=== PATIENT | female | born 1955 | race Caucasian/White ===

== ENCOUNTER 2024-11-29 14:54 | Outpatient (REF) | payer MEDICARE, OTHER, SELFPAY ==
[2024-11-29 15:13] LABS: MANUAL DIFF FLAG NO
[2024-11-29 15:25] LABS: Basophils Percent Auto 0.4 % (0-2); Eosinophils Absolute Auto 0.1 X10*3/uL (0.0-0.4); Hematocrit 35.7 % (37.0-47.0); Hemoglobin 12.4 g/dl (12.0-16.0); Imm Gran Abs Auto 0.02 X10*3/uL (0.00-0.03); Imm Gran Pct Auto 0.3 % (0.0-0.4); Lymphocytes Absolute Auto 1.4 X10*3/uL (1.2-4.9); Mean Corpuscular HGB Conc 34.7 g/dl (31.0-35.0); Mean Corpuscular Hemoglobin 31.7 pg (27.0-33.0); Mean Corpuscular Volume 91.3 fL (80.0-98.0); Mean Platelet Volume 9.8 fL (9.4-12.3); Monocytes Absolute Auto 0.3 X10*3/uL (0.1-1.2); Monocytes Percent Auto 4.8 % (2-11); Neutrophils Absolute Auto 4.9 x10*3/uL (2.0-8.3); Neutrophils Percent Auto 72.5 % (45-73); Platelet Count 235 X10*3/uL (160-400); Red Blood Count 3.91 X10*6/uL (4.20-5.50); White Blood Count 6.7 X10*3/uL (4.8-10.8)
[2024-11-29 15:54] LABS: Alanine Aminotransferase 303 U/L (0-31); Albumin Level 4.1 g/dL (3.5-5.0); Anion Gap 13 (12-20); Aspartate Amino Transferase 145 U/L (5-31); Bilirubin Total 0.5 mg/dL (0.0-1.0); Blood Urea Nitrogen 14 mg/dL (9-16); C Reactive Protein 9.57 mg/dL (< or = 0.50); Calcium 9.2 mg/dL (8.4-10.2); Carbon Dioxide 28 mmol/L (22-29); Chloride 103 mmol/L (96-108); Estimated Glomerular Filt Rate > 60; Glucose Random 109 mg/dL (60-115); Sodium 141 mmol/L (135-145); Total Protein 6.5 g/dL (6.5-8.0)
[2024-11-29 16:15] LABS: Alkaline Phosphatase 204 U/L (39-117); Ferritin 1538 ng/mL (10-250); Free T4 (Free Thyroxine) 1.24 ng/dL (0.71-1.85)
[2024-11-29 16:25] LABS: Erythrocyte Sedimentation Rate 46 MM/HR (0-20)
== END 2024-11-29 14:55 | disposition home or self-care (01) ==
LOC: HO.LAB 14:54
PROVIDERS: PCP Family Medicine; Visit Provider Family Medicine
DX: R50.9 Fever, unspecified (principal)
CPT/HCPCS: 36415; 80053; 82728; 84439; 85025; 85652; 86140

== ENCOUNTER 2024-12-10 14:26 | Outpatient (REF) | payer OTHER, MEDICARE, SELFPAY ==
[2024-12-10 14:40] LABS: MANUAL DIFF FLAG NO
[2024-12-10 15:20] LABS: Basophils Absolute Auto 0.1 X10*3/uL (0.0-0.2); Basophils Percent Auto 0.8 % (0-2); Eosinophils Absolute Auto 0.1 X10*3/uL (0.0-0.4); Eosinophils Percent Auto 1.8 % (0-4); Hematocrit 37.9 % (37.0-47.0); Hemoglobin 12.7 g/dl (12.0-16.0); Imm Gran Abs Auto 0.02 X10*3/uL (0.00-0.03); Imm Gran Pct Auto 0.3 % (0.0-0.4); Lymphocytes Absolute Auto 2.8 X10*3/uL (1.2-4.9); Lymphocytes Percent Auto 39.2 % (20-40); Mean Corpuscular HGB Conc 33.5 g/dl (31.0-35.0); Mean Corpuscular Hemoglobin 31.4 pg (27.0-33.0); Mean Corpuscular Volume 93.8 fL (80.0-98.0); Mean Platelet Volume 9.2 fL (9.4-12.3); Monocytes Absolute Auto 0.5 X10*3/uL (0.1-1.2); Monocytes Percent Auto 6.5 % (2-11); Neutrophils Absolute Auto 3.7 x10*3/uL (2.0-8.3); Neutrophils Percent Auto 51.4 % (45-73); Platelet Count 465 X10*3/uL (160-400); Red Blood Count 4.04 X10*6/uL (4.20-5.50); Red Cell Distribution Width 13.7 % (11.0-16.0); White Blood Count 7.2 X10*3/uL (4.8-10.8)
[2024-12-10 15:48] LABS: Alanine Aminotransferase 28 U/L (0-31); Albumin Level 4.2 g/dL (3.5-5.0); Alkaline Phosphatase 125 U/L (39-117); Anion Gap 12 (12-20); Aspartate Amino Transferase 17 U/L (5-31); Bilirubin Direct 0.1 mg/dL (0.0-0.5); Bilirubin Total 0.5 mg/dL (0.0-1.0); C Reactive Protein 0.13 mg/dL (< or = 0.50); Carbon Dioxide 27 mmol/L (22-29); Chloride 107 mmol/L (96-108); Potassium 3.8 mmol/L (3.3-5.1); Sodium 142 mmol/L (135-145); Total Protein 6.6 g/dL (6.5-8.0)
[2024-12-10 16:05] LABS: Erythrocyte Sedimentation Rate 23 MM/HR (0-20)
[2024-12-11 08:20] LABS: HBS Num1 50.89 mIU/mL (0-7.99); HBsAGNum1 0.29 S/CO (0.00-0.99); Hepatitis B Surface Antigen Negative (Negative); ~HepC Num1 0.14 S/CO (0.00-0.79); ~Hepatitis B Surface Antibody REACTIVE (Nonreactive); ~Hepatitis C Antibody Nonreactive (Nonreactive)
== END 2024-12-10 14:27 | disposition home or self-care (01) ==
LOC: HO.LAB 14:26
PROVIDERS: Visit Provider Family Medicine
DX: K75.9 Inflammatory liver disease, unspecified (principal); R53.81 Other malaise; R53.83 Other fatigue; E56.1 Deficiency of vitamin K
CPT/HCPCS: 36415; 80051; 80076; 85025; 85652; 86140; 86706; 86803; 87340

== ENCOUNTER 2025-02-18 13:31 | Outpatient (AMB) | payer OTHER, MEDICARE, SELFPAY ==
--- NOTE | 2025-02-18 13:39 | MHC.PC.OV ---
Vital Signs 02/18/25 13:46 Height 5 ft Weight 61.235 kg BMI 26.4 BP 122/72 Respiration 16 Pulse 81 Pulse Source Pulse Oximeter Temp 98.4 F Temp Source Temporal Artery Scan Pulse Oximetry (%) 99 Oxygen Delivery Method Room Air Intake Visit Reasons: 2 MO F/UP - [employer] - [employer]raining Instructor Required: No Accompanied by: Self / Same As Patient Allergies doxycycline Allergy (Mild, Verified 02/18/25 13:41) Hives prenisone Adverse Reaction (Mild, Uncoded 02/18/25 13:41) Anxiety Tobacco use date assessed: 02/18/25 Fall risk assessment: 2 + Falls in past year Last assessed Fall Risk: 02/18/25 Dental Screening Dental Screen Date: 02/18/25 Did you have a dental visit in the last 12 months?: Yes Did you have a dental problem in the last 6 months where you did not have access to dental care?: No Was dental information given to patient?: No HPI HPI Comments History of Present Illness Details 69-year-old female with history of orthostatic hypotension, early onset cerebellar ataxia, history of TBI, asthma, venous insufficiency presents to the office today for management of chronic condition that will establish care. Asthma-reports is exercise-induced. Albuterol as needed with good effect Personal history of TBI-overall highly functioning though does occasionally require the assistance of her for recalling events history Concerns: Lyme disease- unclear when she was actually bitten, but officially diagnosed November 26 at [facility]. Took amoxicillin. Reports history of allergy to doxycycline with a rash, however does not seem consistent with urticaria. Possibly related to sun exposure as side effect of doxycycline. Sx initially fatigue which was the most pronounced and remains so. No arthralgias or myalgias. No neuro deficits. H she is very bothered by the fatigue as she was typically very active prior to this. Now feels exhausted with little energy. Reports she does sleep well, sometimes wakes earlier than she would like however. No depression Skin lesions on belt line abd. No relief with hydrocortisone but some relief with triamcinolone ROS: General: No fevers, malaise, unintentional weight loss. See HPI HEENT: No blurred vision, diplopia. No sore throat, nasal congestion, rhinorrhea, sinus pain, ear pain Cardiovascular: No chest pain, palpitations, or leg edema Respiratory: No shortness of breath, wheezing, cough GI: No abdominal pain, nausea, vomiting, diarrhea, constipation, melena, hematochezia : No dysuria, hematuria, increased urinary frequency, decreased urinary output MSK: No myalgia, back pain Neuro: No headaches, weakness, paresthesias Skin: No rashes or lesions. See HPI EXAM: Constitutional - Awake and Alert, No apparent distress Eyes - PERRL Cardiovascular - S1S2, RRR, No edema Respiratory - Normal lung expansion, Normal respiratory effort, No respiratory distress, CTA bilaterally Extremities - no calf tenderness bilaterally, no swelling Skin - Warm/Dry Neurological - Alert & oriented x3 Psychological - Appropriate affect . [facility] Medical History (Updated 02/18/25 @ 14:08 by ABDON Oliver) Asthma Lyme disease Surgical History History of colonoscopy (~07/25/22) Social History Housing: House Patient Tobacco Use Status: Never used Tobacco e-Cigarette/Vaping Use: Never Used service: No Current occupational status: retired and disabled Cognitive needs: Yes (walking sticks) Hearing needs: No Vision needs: Yes (Rx glasses, reading glasses) Questionnaire PHQ-9 Over the last 2 weeks, how often have you been bothered by any of the following problems? 1. Little interest or pleasure in doing things: not at all 2. Feeling down, depressed, or hopeless: several days 3. Trouble falling or staying asleep, or sleeping too much: several days 4. Feeling tired or having little energy: not at all 5. Poor appetite or overeating: not at all 6. Feeling bad about yourself - or that you are a failure or have let yourself or your family down: not at all 7. Trouble concentrating on things, such as reading the newspaper or watching television: several days 8. Moving or speaking so slowly that other people could have noticed. Or the opposite - being so fidgety or restless that you have been moving around a lot more than usual: not at all 9. Thoughts that you would be better off or of hurting yourself in some way: not at all Total score: 3 Depression Screening Interpretation: Negative Depression Screening Done: Yes 34216 - PHQ-9 Billing: Yes Source: Developed by Drs. Michoacano Hair, Young Mcnamara and colleagues, with an educational alfreda from [employer]. Thrive Questionnaire I am a: Patient What is your living situation today?: I have a steady place to live Within the past 12 months, did the food you bought not last and you didn't have the money to get more?: Never true Within the past 12 months, did you worry whether your food would run out before you got money to buy more?: Never true Do you have trouble paying for medicines?: No Do you have trouble getting transportation to medical appointments?: No Do you have trouble paying your heating and electricity bill?: No Do you have trouble taking care of your child, family member or friend?: No Do you have trouble with day-to-day activities such as bathing, preparing meals, shopping, managing finances, etc.?: No Are you currently unemployed and looking for a job?: No Are you interested in more education?: No THRIVE Score: 0 AKOSUA-7 AMB Questionnaire AKOSUA-7 Feeling nervous, anxious, or on edge: 0 = Not at all Not being able to stop or control worryin = Not at all Worrying too much about different things: 1 = Several days Trouble relaxin = Not at all Being so restless that it is hard to sit still: 0 = Not at all Becoming easily annoyed or irritable: 0 = Not at all Feeling afraid as if something awful might happen: 0 = Not at all Total AKOSUA-7 score (0-4 normal; 5-9 mild; 10-14 moderate; 15-21 severe): 1 Source: Developed by Drs. Michoacano Hair, Young Mcnamara and colleagues, with an educational alfrdea from [employer]. AKOSUA-7 Assessment Billing AKOSUA-7 Assessment Tool: AKOSUA-7 Assessment 71580 Physical exam (Primary Care) Vital Signs: Last Vital Signs Temp 98.4 F 02/18/25 13:46 Pulse 81 02/18/25 13:46 Resp 16 02/18/25 13:46 BP 122/72 02/18/25 13:46 Pulse Ox 99 02/18/25 13:46 Oxygen Delivery Method Room Air 02/18/25 13:46 BMI result Body Mass Index 26.4 Tobacco/Smoking Status: Tobacco use Status Tobacco use date assessed 02/18/25 02/18/25 13:48 Patient Tobacco Use Status Never used Tobacco 02/18/25 13:48 e-Cigarette/Vaping Use Never Used 02/18/25 13:48 Depression Screening Interpretation: Negative Coding Level of Care Code New Pt Level 4 (51904) Complex EM visit Add On G2211 Diagnoses Asthma J45.909 Hair loss L65.9 Fatigue R53.83 Lyme disease A69.20 Additional Codes PHQ-9 - 42516 - PHQ-9 Billing: Yes ([id number]) AKOSUA-7 Assessment Billing - AKOSUA-7 Assessment Tool: AKOSUA-7 Assessment 45437 ([id number]) Assessment & Plan Assessment & Plan (1) Asthma: Code(s): J45.909 - Unspecified asthma, uncomplicated Category: Medical Plan: Stable. Albuterol p.r.n. (2) Hair loss: Code(s): L65.9 - Nonscarring hair loss, unspecified Category: Medical Plan: Check TSH and DHEA Can trial biotin (3) Fatigue: Code(s): R53.83 - Other fatigue Category: Medical Plan: Recheck Lyme. Consider prescription for doxycycline given question of actual allergy should this be positive. Additional labs as ordered (4) Lyme disease: Code(s): A69.20 - Lyme disease, unspecified Category: Medical Plan: As above. Records to be crusted from [facility] along with labs Plan Follow-up in the office in 1 month Orders: Orders IRON PROFILE Today A69.20 - Lyme disease, unspecified, R53.83 - Other fatigue TSH reflex Free T4 Today A69.20 - Lyme disease, unspecified, R53.83 - Other fatigue Vitamin D 25-OH Total Today A69.20 - Lyme disease, unspecified, R53.83 - Other fatigue Vitamin B12 Today A69.20 - Lyme disease, unspecified, R53.83 - Other fatigue DHEA Sulfate Today J45.909 - Unspecified asthma, uncomplicated, L65.9 - Nonscarring hair loss, unspecified, R53.83 - Other fatigue Complete Blood Count Auto Diff Today A69.20 - Lyme disease, unspecified, R53.83 - Other fatigue Lyme IgG/IgM w/reflex to WB Today A69.20 - Lyme disease, unspecified, R53.83 - Other fatigue Basic Metabolic Panel Today R53.83 - Other fatigue
--- OUTSIDE RECORDS SUMMARY | 2025-02-18 13:40 | XMS_ITS | Clinical Summary ---
Author Organization [facility] Address [address] [place] [address] Phone Care Team Providers Care Vice President Digital Strategist Name Role Phone Amisha Esparza MD Primary Care Provider Luz Locke MD Unavailable [phone] Allergies Active Allergy Reactions Criticality Noted Date Comments Doxycycline Hives 12/27/2021 Latex Itching Low 07/01/2022 Prednisone Unknown 05/08/2012 Other reaction(s): Other (See Comments) Medications albuterol 90 mcg/actuation inhaler Inhale 2 puffs into the lungs as needed. Active triamcinolone acetonide 0.1 % cream Apply 1 application. topically as needed. 2 Active L-methylfolate (DEPLIN) 15 mg Tab Take 15 mg by mouth. 2 Active calcium carbonate (OS-ADRIENNE) 1,500 mg (600 mg elemental) tablet Take 1,200 mg by mouth daily. 2 Active multivitamin-mi nerals-lutein (CENTRUM SILVER) Tab Take 1 tablet by mouth daily. Active docusate sodium (COLACE) 100 MG capsule Take 100 mg by mouth 2 (two) times a day. 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 Encounters Date Type Department Care Team Description 11/26/2024 11:50 PM EDT - 11/27/2024 3:52 AM EDT Emergency [facility] [address] [place] [address] Discharge Disposition: Home or Self Care from Last 3 Months Immunizations Immunization Administration Dates Next Due COVID-19 (Pre-04/14) Venus Vaccine, rS-Ad26, PF 08/26/2020 COVID-19 (Pre) Moderna Vaccine, Bivalent 6mo+ 04/25/2022 COVID-19 (Pre-04/14) Moderna Vaccine, mRNA, PF 11/05/2021,05/07/2021 Influenza High-Dose Quadriva lent Preservative Free IM 04/30/2021,04/20/2020 Influenza High-Dose Trivalen t Preservative Free IM 04/23/2019 Pneumococcal polysaccharide PPSV23 05/26/2018 Tdap 09/22/2012 Zoster recombinant 09/28/2020,06/26/2020, 020 Family History Medical History Relation Comments Esophageal cancer Father Heart attack Father Breast cancer Maternal Grandmother Lung cancer Mother non smoker Breast cancer Sister Relation Status Comments Father Maternal Grandmother Mother Sister Social History Tobacco Use Types Packs/Day Years Used Date Smoking Tobacco: Never Smokeless Tobacco: Never Tobacco Cessation:Counseling Given: Not Answered Alcohol Use Standard Drinks/Week Comments Yes 5 (1 standard drink = 0.6 oz pur e alcohol) Education Answer Date Recorded Are you interested in more education? Not on maxx e 10/17/2022 Are you concerned about learning? Not on file 10/17/2022 No 10/17/2022 No 10/17/2022 Food Answer Date Recorded Within the past 6 months we worried whether our food would run out before we got money to buy more. Never True 11/27/2024 Within the past 6 months the food we bought just didn't last and we didn't have enough money to get more. Never True Residential Stability Answer Date Recor ded What is your housing situation today? I have jun sing 11/27/2024 How many times have you move d in the past 12 months? Zero (I did not move) 11/27/2024 Paying for Meds Answer Date Recorded Do you have trouble paying for medicines? No 11/27/2024 Paying Utility Bills Answer Date Record ed Do you have trouble paying your heating or elect ricity bill? No 11/27/2024 Transportation Answer Date Recorded Has the lack of transportati on kept you from medical appointments or from getting medications? No 11/27/2024 Digital Access Answer Date Recorded No 11/27/2024 Yes 11/27/2024 Do you have reliable internet access at home? Ye s 11/27/2024 Do you have a device (e.g., phone, tablet, computer) with a working camera? Yes 11/27/2024 Intimate Partner Violence Answer Date R ecorded Are you denied basic needs s uch as food, clothing, or medical care? No 11/26/2024 In the past 12 months have y ou been in a relationship with a person who hurts, threatens, or tries to control you? No 11/26/2024 Are you denied basic needs s uch as food, clothing, or medical care? No 11/26/2024 In the past 12 months have y ou been in a relationship with a person who hurts, threatens, or tries to control you? No 11/26/2024 Comments No Sex and Gender Information Value Date Recorded Sex Assigned at Female 07/22/2022 10:51 AM EST Legal Sex Female 7:34 PM EST Gender Identity Female 07/22/2022 10:51 AM EST Sexual Orientation Straight 07/22/2022 10 :51 AM EST Last Filed Vital Signs Vital Sign Reading Time Taken Comments Blood Pressure 109/68 11/26/2024 8:56 PM EDT Pulse 86 11/26/2024 8:56 PM EDT Temperature 38.1 C (100.6 F) 11/26/2024 8:56 PM EDT Respiratory Rate 20 11/26/2024 8:56 PM EDT Oxygen Saturation 96% 11/27/2024 1:37 AM EDT Inhaled Oxygen Concentration - - Weight 65.7 kg (144 lb 12.8 oz) 09/10/2024 4:30 PM EDT Height 152.4 cm (5') 09/23/2022 7:03 AM EDT Body Mass Index 28.28 09/23/2022 7:03 AM EDT Plan of Treatment Upcoming Encounters Date Type Department Care Team (Late st Contact Info) Description 09/10/2024 Procedure Pass [address] [address] 03/28/2025 11:30 AM EDT Appointment [address] [address] Kaden Anguiano MD [address] [place] [address], [address] [place] [address] [email or web address] Health Maintenance Due Date Last Done Comments LIPID PANEL 1955 HEPATITIS C SCREENING 09/09/1971 MAMMOGRAM 1993 COLOGUARD 1998 FIT TEST 1998 FOBT 1998 SIGMOIDOSCOPY 1998 VIRTUAL COLONOSCOPY 1998 OSTEOPOROSIS SCREENING INITIAL (ONE-TIME) 2018 Adult Td,Tdap Booster 09/22/2022 09/22/2012 DEPRESSION SCREENING 02/10/2024 02/09/2023, 02/10/20 23 COVID-19 VACCINE ( season) 2024 02/24/2024, 04/21/2023, 04/25/2022, Additional history exists INFLUENZA VACCINE (#1) 2025 , 04/21/2023, 04/25/2022, Additional history exists RSV VACCINE (1 - 1-dose 75+ series) 2028 COLONOSCOPY 07/25/2032 07/25/2022 COLORECTAL CANCER SCREENING 07/25/2032 ZOSTER VACCINES Completed 09/28/2020, 09/2020, 03/23/2020 PNEUMOCOCCAL VACCINES (50+ years) Completed 06/20/2022, 05/26/2018 SMOKING STATUS SCREENING (Once After 26 Yrs) Completed 09/10/2024 HEPATITIS A VACCINES Aged Out No long er eligible based on patient's age to complete this topic HIB VACCINES Aged Out No longer eligi ble based on patient's age to complete this topic MENINGOCOCCAL VACCINES (ACWY) Aged Out No longer eligible based on patient's age to complete this topic MENINGOCOCCAL VACCINES (B) Aged Out N o longer eligible based on patient's age to complete this topic Medical Devices Not on file Procedures Procedure Name Priority Date/Time Associated Diagnosis Comments URINE SEDIMENT STAT 11/27/2024 1:21 AM EDT URINALYSIS W/REFLEX URINE CULTURE STAT 11/27/2024 1:21 AM EDT LYME WESTERN BLOT ONLY STAT 11/27/2024 1:15 AM EDT LYME SCREEN WITH REFLEX TO WESTERN BLOT, BLOOD STAT 11/27/2024 1:15 AM EDT BABESIA SPECIES PCR STAT 11/27/2024 1 :15 AM EDT Ehrlichia/anaplasma PCR STAT 11/27/2024 1:15 AM EDT COVID PANDEMIC RESPIRATORY VIRAL ORDER (PRO) STAT 11/27/2024 1:01 AM EDT ECG 12-LEAD STAT 11/26/2024 11:58 PM EDT LACTIC ACID (LACTATE) STAT 11/26/2024 10:10 PM EDT LIPASE STAT 11/26/2024 10:10 PM EDT MAGNESIUM STAT 11/26/2024 10:10 PM EDT LFTS (HEPATIC PANEL) STAT 11/26/2024 10:10 PM EDT BASIC METABOLIC PANEL STAT 11/26/2024 10:10 PM EDT CBC AND DIFFERENTIAL STAT 11/26/2024 10:10 PM EDT ENDOSCOPY, COLON 07/25/2022 11:5 0 AM EST from Last 3 Months or Most Recently Relevant to Health Maintenance Results * (ABNORMAL) Urinalysis w/reflex Urine Culture (11/27/2024 1:21 AM EDT) COLOR Yellow Yellow [facility] CLARITY HAZY [facility] GLUCOSE Negative Negative [facility] BILI Negative Negative [facility] KETONES 1+(A) Negative [facility] SPECIFIC GRAVITY 1.010 1.005 - 1.030 [facility] BLOOD 2+(A) Negative [facility] PH 6.0 5.0 - 8.0 [facility] Protein-UA Negative Negative [facility] NITRITE Negative Negative [facility] Leukocyte esterase, ur Trace(A) Negative [facility] Urine (Urine) 11/27/2024 1:2 1 AM EDT 11/27/2024 1:26 AM EDT Hernan López MD URINE ORDERABLES Final Resu lt Performing Organization Address [facility] Co de Phone Number [address] [address] * (ABNORMAL) Urine sediment (11/27/2024 1:21 AM EDT) WBC 5-10(A) NONE SEEN /hpf [facility] RBC 3-5(A) NONE SEEN /hpf [facility] URINE EPITHELIAL 11-20(A) NONE SEEN [facility] MUCUS 2+(A) NONE SEEN /hpf [facility] BACTERIA 1+(A) NONE SEEN /hpf [facility] 11/27/2024 1:21 AM EDT 11/27/2024 1:26 AM EDT Hernan López MD URINE ORDERABLES Final Resu lt Performing Organization Address [facility] Co de Phone Number [address] [address] * Babesia species PCR (11/27/2024 1:15 AM EDT) B.Microti PCR Negative Negative [facility] OF LAB MED AND PAT+ B.Duncani PCR Negative Negative [facility] MED AND PAT+ B.Divergens/MO-1 PCR Negative Negative [facility] DPT OF LAB MED AND PAT+ Comment: (NOTE) ADDITIONAL INFORMATION This test was developed and its performance characteristics determined by [facility] in a manner consistent with CLIA requirements. This test has not been cleared or approved by the U.S. Food and Drug Administration. Blood 11/27/2024 1:15 AM EDT 11/27/2024 1:25 AM EDT us Josue Lepe PA-C LAB BLOOD ORDERABLES Final R esult [facility] DPT OF LAB MED AND PAT+ [address] [place] [address] * Lyme Western blot only (11/27/2024 1:15 AM EDT) IGG Immunoblot Negative Negative [facility] LAB MED/PATH [address] IGG BANDS (KDA) None kDa [facility] LAB MED/PATH [address] DR IGM Immunoblot Negative Negative [facility] LAB MED/PATH [address] DR IGM BANDS (KDA) p23 kDa [facility] LAB MED/PATH [address] DR Interpretation - Lyme SEE NOTE [facility] LAB MED/[facility] [address] Comment: (NOTE) Specific serologic response to B. burgdorferi infection is not detected, but cannot rule out early infection during which low or undetectable antibody levels to B. burgdorferi may be present. If clinically indicated, a new serum specimen should be submitted in 7-14 days. ADDITIONAL INFORMATION Per CDC criteria, the Lyme IgG Immunoblot is interpreted as positive if IgG-class antibodies are detected to >=5 B. burgdorferi proteins, and the Lyme IgM Immunoblot is interpreted as positive if IgM-class antibodies are detected to >=2 B. burgdorferi proteins. Immunoblot patterns not meeting these criteria should not be interpreted as positive. Epitopes from certain B. burgdorferi proteins (e.g., p41) are conserved across other bacteria, which may lead to the detection of IgM- and/or IgG-class antibodies on the Lyme disease immunoblots in patients without Lyme disease. Immunoblot should only be ordered on specimens that are positive or equivocal by a FDA-licensed Lyme disease antibody screening test (e.g., EIA). Results of the Lyme IgM immunoblot should not be considered in patients with >= 30 days of symptoms. 11/27/2024 1:15 AM EDT 11/27/2024 1:24 AM EDT Josue Lepe PA-C LAB BLOOD ORDERABLES Final R esult Performing Organization Address [facility] Co de Phone Number [facility] [address] [place] [address] * Ehrlichia/anaplasma PCR (11/27/2024 1:15 AM EDT) [facility] ANAPLASMA PHAGOCYTO Negative Negative [facility] DPT OF LAB MED AND PAT+ EHRLICHIA CHAFFEENS Negative Negative [facility] DPT OF LAB MED AND PAT+ EHRL EWINGII/CANIS Negative Negative [facility] DPT OF LAB MED AND PAT+ EHRL MURIS-LIKE Negative Negative [facility] DPT OF LAB MED AND PAT+ Comment: (NOTE) ADDITIONAL INFORMATION This test was developed and its performance characteristics determined by [facility] in a manner consistent with CLIA requirements. This test has not been cleared or approved by the U.S. Food and Drug Administration. Blood 11/27/2024 1:15 AM EDT 11/27/2024 1:25 AM EDT Josue Lepe PA-C LAB BLOOD ORDERABLES Final R esult Performing Organization Address [facility] Co de Phone Number [facility] DPT OF LAB MED AND PAT+ [address] [place] [address] * (ABNORMAL) Lyme Screen with Reflex to Immunoblot, Blood (11/27/2024 1:15 AM EDT) [facility] Lyme AB IgG Negative Negative [facility] Lyme AB IgM Positive(A) Negative [facility] Comment:The Lyme Disease Ant ibody, Confirmation, Serum (Western Blot) has been reflexed. The results will follow. Blood 11/27/2024 1:15 AM EDT 11/27/2024 1:24 AM EDT Josue Lepe PA-C LAB BLOOD ORDERABLES Final R esult Performing Organization Address [facility] Co de Phone Number [address] [address] * COVID Pandemic Respiratory Viral Order (PRO) (11/27/2024 1:01 AM EDT) [facility] Test Ordered Rapid COVID, Flu has been ordered [facility] Specimen Source/Descriptio n NASOPHARYNGEAL SWAB [facility] Influenza A PCR Not Detected Not Detected [facility] Influenza B PCR Not Detected Not Detected [facility] SARS-CoV 2 (COVID-19) PCR Not Detected Not Detected [facility] Comment: SARS-CoV-2 not detected Negative results do not preclude SARS-CoV-2 infection and should not be used as the sole basis for patient management decisions. Negative results must be combined with clinical observations, patient history, and epidemiological information. Other (Nasopharyngeal swab) 11/27/2024 1:01 AM EDT 11/27/2024 1:06 AM EDT Josue Lepe PA-C BODY FLUIDS AND STOOLS ORDER MICHAEL Final Result Performing Organization Address [facility] de Phone Number [address] [address] * ECG 12-LEAD (11/26/2024 11:58 PM EDT) [facility] Ventricular Rate EKG/MIN 63 BPM [facility] Atrial Rate 63 BPM [facility] TX Interval 136 ms [facility] QRS Duration 78 ms [facility] QT Interval 394 ms [facility] QTC Interval 403 ms [facility] P [place] 28 degrees [facility] R Wave [place] 8 degrees [facility] T Wave [place] 9 degrees [facility] 11/26/2024 11:5 8 PM EDT 11/27/2024 10:20 AM EDT Narrative [facility] - 11/27/2024 10:20 AM EDT Normal sinus rhythm Normal ECG No previous ECGs available Confirmed by Jeffrey Dos Santos ([id number]) on 11/27/2024 10:20:19 AM Hernan López MD ECG ORDERABLES Final Resul t [facility] * (ABNORMAL) LFTs (hepatic panel) (11/26/2024 10:10 PM EDT) ALKALINE PHOSPHATASE 103 39 - 117 U/L [facility] TOTAL BILIRUBIN 0.6 0.0 - 1.2 mg/dL [facility] DIRECT BILIRUBIN 0.2 0.0 - 0.2 mg/dL [facility] Bilirubin (Indirect) 0.4 0 - 1.5 mg/dL [facility] AST 85(H) 0 - 37 U/L [facility] ALT 59(H) 0 - 40 U/L [facility] TOTAL PROTEIN 6.8 6.5 - 8.0 g/dL [facility] ALBUMIN 4.0 3.9 - 4.8 g/dL [facility] GLOBULIN 2.8 1 - 4.8 g/dL [facility] A/G Ratio 1.43 1.00 - 4.80 RATIO [facility] Blood 11/26/2024 10:1 0 PM EDT 11/26/2024 10:21 PM EDT Hernan López MD LAB BLOOD ORDERABLES Final Result [facility] [address] [place] [address] * (ABNORMAL) CBC and differential (11/26/2024 10:10 PM EDT) WBC 8.74 4.00 - 11.00 K/uL [facility] RBC 4.27 4.00 - 5.20 M/uL [facility] HGB 13.4 12.0 - 16.0 g/dL [facility] HCT 39.1 36.0 - 46.0 % [facility] PLT 225 150 - 450 K/uL [facility] MCV 91.6 80.0 - 100.0 fL [facility] MCH 31.4(H) 27.0 - 31.0 pg [facility] MCHC 34.3 32.0 - 36.0 g/dL [facility] RDW 12.7 11.5 - 14.5 % [facility] MPV 9.9 8.4 - 12.0 fL [facility] NRBC 0.00 0.00 /100 WBCs [facility] ABSOLUTE NRBC 0.00 0.00 K/uL [facility] DIFF METHOD Auto [facility] NEUTS 88.6(H) 48.0 - 76.0 % [facility] LYMPHS 6.3(L) 18.0 - 41.0 % [facility] MONOS 4.3 4.0 - 11.0 % [facility] EOS 0.0 0.0 - 5.0 % [facility] BASOS 0.5 0.0 - 1.5 % [facility] Granulocytes, immature (%) 0.3 0.0 - 0.9 % [facility] ABSOLUTE NEUTS 7.74(H) 1.92 - 7.60 K/uL [facility] ABSOLUTE LYMPHS 0.55(L) 0.72 - 4.10 K/uL [facility] ABSOLUTE MONOS 0.38 0.16 - 1.10 K/uL [facility] ABSOLUTE EOS 0.00 0.00 - 0.50 K/uL [facility] ABSOLUTE BASOS 0.04 0.00 - 0.15 K/uL [facility] Granulocytes, immature 0.03 0.00 - 0.09 K/uL [facility] Blood 11/26/2024 10:1 0 PM EDT 11/26/2024 10:21 PM EDT us Hernan López MD LAB BLOOD ORDERABLES Final Result [address] [address] * Magnesium (11/26/2024 10:10 PM EDT) Pathologist [facility] MAGNESIUM 2.0 1.6 - 2.6 mg/dL [facility] Blood 11/26/2024 10:1 0 PM EDT 11/26/2024 10:21 PM EDT Hernan López MD LAB BLOOD ORDERABLES Final Result [address] [address] * Lipase (11/26/2024 10:10 PM EDT) Pathologist [facility] LIPASE 30 16 - 63 U/L [facility] Blood 11/26/2024 10:1 0 PM EDT 11/26/2024 10:21 PM EDT Hernan López MD LAB BLOOD ORDERABLES Final Result Performing Organization Address [facility]/ZIP Co de Phone Number [address] [address] * Lactate (11/26/2024 10:10 PM EDT) [facility] LACTATE 0.85 0.50 - 2.20 mmol/L [facility] Blood 11/26/2024 10:1 0 PM EDT 11/26/2024 10:15 PM EDT Hernan López MD LAB BLOOD ORDERABLES Final Result Performing Organization Address [facility]/ZIP Co de Phone Number [address] [address] * (ABNORMAL) Basic metabolic panel (11/26/2024 10:10 PM EDT) Pathologist [facility] SODIUM 131(L) 133 - 146 mmol/L [facility] CHLORIDE 94(L) 96 - 108 mmol/L [facility] POTASSIUM 4.0 3.3 - 5.1 mmol/L [facility] CO2 25 21 - 35 mmol/L [facility] BUN 16 6 - 19 mg/dL [facility] CREATININE 0.90 0.5 - 1.5 mg/dL [facility] GLUCOSE 130(H) 70 - 99 mg/dL [facility] CALCIUM 9.5 8.4 - 10.3 mg/dL [facility] EGFR 68 >59 mL/min/1.7 3m2 [facility] Comment:Estimated glomerular filtration rate calculated using the CKD-EPI refit equation. ANION GAP 16 10 - 20 mmol/L [facility] Blood 11/26/2024 10:1 0 PM EDT 11/26/2024 10:21 PM EDT us Hernan López MD LAB BLOOD ORDERABLES Final Result Performing Organization Address City/State/[facility] Co de Phone Number [address] [address] * ENDOSCOPY, COLON (07/25/2022 11:50 AM EST) Narrative Transcriptions Milan Giraldo MD - 07/25/2022 11:50 AM EST [facility] Patient Name: Brooklynn Waite MD:: MILAN GIRALDO MD Procedure Date: 07/25/2022 11:50 AM Date of : 1955 Age: 66 Admit Type: Outpatient Gender: Female [facility] Referring MD: AMISHA ESPARZA Exam Type: Colonoscopy Indications: Change in bowel habits Medications: Monitored Anesthesia Care Procedure: Informed consent was obtained from the patientafter discussion of the indications, limitations, alternatives, benefits, and risks of the procedure. Risks specifically discussed include but are not limited to medication reactions, missed lesions, bleeding, perforation, or the need for emergent surgery. Throughout the procedure, the patient's blood pressure, pulse, end-tidal CO2, and oxygensaturations were monitored continuously. The Olympus adult variable colonoscope [id number] #1 was introduced through the anus and advanced to the cecum, identified by the appendiceal orifice. The colonoscopy was performed without difficulty. The patient tolerated the procedure well. The qualityof the bowel preparation was good. Anatomicallandmarks were photographed. Complications: No immediate complications. Estimated blood loss:None. Findings: The perianal and digital rectal examinations were normal. The rectum, recto-sigmoid colon, sigmoid colon, descending colon, splenic flexure, transversecolon, hepatic flexure, ascending colon, cecum,appendiceal orifice, ileocecal valve, rectum (on retroflexion)and ascending colon (on retroflexion) appearednormal. Impression: - The rectum, sigmoid colon, descending colon,splenic flexure, transverse colon, hepatic flexure,ascending colon, cecum, rectum (on retroflexion), ascending colon (on retroflexion), ileocecal valve, recto-sigmoid colon and appendiceal orifice arenormal. - No specimens collected. Recommendation: - Discharge patient to home. - Resume previous diet. - Continue present medications. - [facility] - Your colonoscopy was normal with no polyps or colitis. MILAN GIRALDO MD 07/25/2022 12:13:06 PM This report has been signed electronically. Number of Addenda: 0 Note Initiated On: 07/25/2022 11:50 AM Procedure Code(s): --- Professional --- 38662, Colonoscopy, flexible; diagnostic, including collection of specimen(s) by brushing or washing, when performed (separateprocedure) --- Technical --- 77423, Colonoscopy, flexible; diagnostic, including collection of specimen(s) by brushing or washing, when performed (separateprocedure) Diagnosis Code(s): --- Professional --- R19.4, Change in bowel habit --- Technical --- R19.4, Change in bowel habit CPT copyright 2020 [employer]. All rights reserved. The codes documented in this report are preliminary and upon green building design specialist reviewmay be revised to meet current compliance requirements. Procedure Date: 07/25/2022 11:50:[address] [place] [id number] Amisha Esparza MD GI PROCEDURE ORDERABLES Fin al Result from Last 3 Months or Most Recently Relevant to Health Maintenance Insurance MEDICARE PART A & B [facility] MEDICARE SUPPLEMENT MEDICARE PART A & B MEDICARE SUPPLEMENT MEDICARE PART A & B MEDICARE SUPPLEMENT MEDICARE PART A & B MEDICARE SUPPLEMENT MEDICARE PART A & B MEDICARE SUPPLEMENT MEDICARE PART A & B MEDICARE SUPPLEMENT MEDICARE PART A & B MEDICARE SUPPLEMENT MEDICARE PART A & B MEDICARE SUPPLEMENT MEDICARE PART A & B MEDICARE SUPPLEMENT Advance Directives For more information, please contact: [phone] (9AM - 5PM Jenny/[facility], Friday-Friday) Documents on File Type Date Recorded Patient Product Development Consultant Expl anation Healthcare Proxy 07/05/2022 4:36 PM Care Teams Vice President Digital Strategist Relationship Specialty Start Date End Date Amisha Esparza MD [address] [place] [address] Dr HERRERA [facility] [place] [address] PCP - General Internal Medicine 07/02/22 Luz Locke MD [address] [place] [address] [place] [address] [email or web address] Geriatric Medicine 07/02/22 Additional Source Comments The information contained in this document represents components of the legal health record. It is not the complete legal health record.[facility]
--- OUTSIDE RECORDS SUMMARY | 2025-02-18 13:41 | XMS_ITS | Encounter Summary ---
Author Organization [facility] Address [address] [place] [address] Phone Care Team Providers Care Operations Mgr Name Role Phone Ashok Esparza MD Primary Care Provider Luz Locke MD Unavailable [phone] Encounter Details Date Type Department Care Team (Late st Contact Info) Description 07/25/2022 Procedure Pass [facility] Endoscopy Admitting Dept Virtual Department [address] [place] [address] Social History Tobacco Use Types Packs/Day Years Used Date Smoking Tobacco: Never Smokeless Tobacco: Never Alcohol Use Standard Drinks/Week Comments Yes 5 (1 standard drink = 0.6 oz pur e alcohol) Comments Unknown Sex and Gender Information Value Date Recorded Sex Assigned at Female 07/22/2022 10:51 AM EST Legal Sex Female 7:34 PM EST Gender Identity Female 07/22/2022 10:51 AM EST Sexual Orientation Straight 07/22/2022 10 :51 AM EST documented as of this encounter Plan of Treatment Upcoming Encounters Date Type Department Care Team (Late st Contact Info) Description 09/10/2024 Procedure Pass [address] [address] 03/28/2025 11:30 AM EDT Appointment [address] [place] [address] Kaden Anguiano MD [address] [facility], [address] [place] [address] [email or web address] documented as of this encounter Visit Diagnoses Not on filedocumented in this encounter Additional Health Concerns Infection Onset Date Last Indicated Resolved Time CoV-Risk 11/27/2024 11/27/2024 12/08/2024 1:21 AM EDT Assessment Noted Time PHQ-9 Depression Total Score: 4 07/02/19 10:32 AM EST PHQ-2 Depression Total Score: 2 07/02/19 10:32 AM EST documented as of this encounter Care Teams Operations Mgr Relationship Specialty Start Date End Date Ashok Esparza MD [address] [place] [address] [place] [address] PCP - General Internal Medicine 07/02/22 Luz Locke MD [address] [place] [address] [place] [address] [email or web address] Geriatric Medicine 07/02/22 documented as of this encounter Additional Source Comments The information contained in this document represents components of the legal health record. It is not the complete legal health record.[facility]
--- OUTSIDE RECORDS SUMMARY | 2025-02-18 13:41 | XMS_ITS | Encounter Summary ---
Author Organization [facility] Address [address] [facility] [address] [place] [address] Phone Care Team Providers Care Plant Operations Coordinator Name Role Phone Malena Stephens MD Primary Care Provider Ashok Esparza MD Primary Care Provider [phone] Luz Locke MD Unavailable Reason for Referral * Physical Therapy - Closed Specialty Diagnoses / Procedures Referred By Rose Mary terrell Referred To Contact Physical Therapy Diagnoses Encounter for rehabilitation Malena Stephens MD Phone: tel: fax: [address] [address] Phone: tel: Referral ID Status Reason Start Date Expiration Date Visits Re quested Visits Authorized [id number] Closed 09/09/2017 11/18/2017 25 25 Encounter Details Date Type Department Care Team (Latest Contact Info) Description 08/20/2017 Transcribe Orders [facility] [address] [place] [address] Malena Stephens MD [address] [place] [address] Encounter for rehabilitation (Primary Dx) Social History Tobacco Use Types Packs/Day Years Used Date Smoking Tobacco: Never Assessed Comments Unknown Sex and Gender Information Value Date Recorded Sex Assigned at Female 07/22/2022 10:51 AM EST Legal Sex Female 7:34 PM EST Gender Identity Female 07/22/2022 10:51 AM EST Sexual Orientation Straight 07/22/2022 10 :51 AM EST documented as of this encounter Plan of Treatment Upcoming Encounters Date Type Department Care Team (Late st Contact Info) Description 09/10/2024 Procedure Pass [address] [address] 03/28/2025 11:30 AM EDT Appointment [address] [address] Kaden Anguiano MD [address] [place] [address], [address] [address] [email or web address] Scheduled Referrals Name Type Priority Associated Diagnoses Orde r Schedule Ambulatory referral to [facility] Physical Therapy Outpatient Referral Routine Encounter for rehabilitation Ordered: 08/20/2017 documented as of this encounter Visit Diagnoses Diagnosis Encounter for rehabilitation- Primary documented in this encounter Additional Health Concerns Infection Onset Date Last Indicated Resolved Time CoV-Risk 11/27/2024 11/27/2024 12/08/2024 1:21 AM EDT documented as of this encounter Care Teams Plant Operations Coordinator Relationship Specialty Start Date End Date [facility] [place] [address] PCP - General 06/26/17 07/01/22 Ashok Esparza MD [address] [place] [address] [place] [address] PCP - General Internal Medicine 07/02/22 Luz Locke MD [address] [place] [address] [place] [address] [email or web address] Geriatric Medicine 07/02/22 documented as of this encounter Additional Source Comments The information contained in this document represents components of the legal health record. It is not the complete legal health record.[facility]
--- OUTSIDE RECORDS SUMMARY | 2025-02-18 13:41 | XMS_ITS | Encounter Summary ---
Author Organization [facility] Address [address] [address] [place] [address] Phone Care Team Providers Care Athletic Gear Custodian Name Role Phone Malena Stephens MD Primary Care Provider Ashok Esparza MD Primary Care Provider Luz Locke MD Unavailable [phone] Encounter Details Date Type Department Care Team (Latest Contact Info) Description 05/13/2022 Transcribe Orders [facility] [address] [place] [address] Milan Aleman MD [address] [facility] 2 [place] [address] Bloating (Primary Dx); Change in bowel habits Social History Tobacco Use Types Packs/Day Years Used Date Smoking Tobacco: Never Smokeless Tobacco: Never Comments Unknown Sex and Gender Information Value Date Recorded Sex Assigned at Female 07/22/2022 10:51 AM EST Legal Sex Female 7:34 PM EST Gender Identity Female 07/22/2022 10:51 AM EST Sexual Orientation Straight 07/22/2022 10 :51 AM EST documented as of this encounter Plan of Treatment Upcoming Encounters Date Type Department Care Team (Late st Contact Info) Description 09/10/2024 Procedure Pass [address] [address] 03/28/2025 11:30 AM EDT Appointment [address] [address] Kaden Anguiano MD [address] [place] [address], [address] [place] [address] [email or web address] documented as of this encounter Results * Celiac Screening Test Panel (05/13/2022 10:35 AM EST) IgA 195 61 - 356 mg/dL [facility] Celiac Disease Panel/Interpret ation SEE NOTE [facility] Comment: (NOTE) See Comment: Negative serology. Celiac disease unlikely. However, approximately 10% of patients with celiac disease are seronegative. Also, patients who are already adhering to a gluten-free diet may be seronegative. If celiac disease is highly clinically suspected, consider HLA-DQ typing. Blood 05/13/2022 10:3 5 AM EST 05/13/2022 10:37 AM EST us Milan Aleman MD LAB BLOOD ORDERABLES Final R esult [facility] MED/[facility] [address] [place] [address] * Lipase (05/13/2022 10:35 AM EST) LIPASE 39 16 - 63 U/L [facility] Blood 05/13/2022 10:3 5 AM EST 05/13/2022 10:37 AM EST us Milan Aleman MD LAB BLOOD ORDERABLES Final R esult [facility] [address] [place] [address] * (ABNORMAL) C-Reactive Protein (05/13/2022 10:35 AM EST) C REACTIVE PROTEIN 4.9(H) 0.0 - 4.0 mg/L [facility] Blood 05/13/2022 10:3 5 AM EST 05/13/2022 10:37 AM EST Milan Aleman MD LAB BLOOD ORDERABLES Final R esult Performing Organization Address City/[facility] Co de Phone Number [address] [address] * Comprehensive metabolic panel (05/13/2022 10:35 AM EST) Pathologist [facility] SODIUM 142 133 - 146 mmol/L [facility] POTASSIUM 4.0 3.3 - 5.1 mmol/L [facility] CHLORIDE 104 96 - 108 mmol/L [facility] CO2 28 21 - 35 mmol/L [facility] BUN 14 6 - 19 mg/dL [facility] CREATININE 0.70 0.5 - 1.5 mg/dL [facility] GLUCOSE 83 70 - 99 mg/dL [facility] ALBUMIN 4.4 3.9 - 4.8 g/dL [facility] TOTAL PROTEIN 6.7 6.5 - 8.0 g/dL [facility] CALCIUM 9.8 8.4 - 10.3 mg/dL [facility] ALKALINE PHOSPHATASE 100 39 - 117 U/L [facility] TOTAL BILIRUBIN 0.5 0.0 - 1.2 mg/dL [facility] AST 25 0 - 37 U/L [facility] ALT 11 0 - 40 U/L [facility] GLOBULIN 2.3 1 - 4.8 g/dL [facility] EGFR 94 >59 mL/min/1.7 3m2 [facility] Comment:Estimated glomerular filtration rate calculated using the CKD-EPI refit equation. ANION GAP 14 10 - 20 mmol/L [facility] Blood 05/13/2022 10:3 5 AM EST 05/13/2022 10:37 AM EST Milan Aleman MD LAB BLOOD ORDERABLES Final R esult Performing Organization Address City/[facility] Co de Phone Number [address] [address] * CBC (05/13/2022 10:35 AM EST) WBC 7.00 4.00 - 11.00 K/uL [facility] RBC 4.33 3.72 - 5.30 M/uL [facility] HGB 14.0 11.4 - 15.9 g/dL [facility] HCT 41.2 34.2 - 46.8 % [facility] PLT 349 140 - 430 K/uL [facility] MCV 95.2 78.0 - 97.0 fL [facility] MCH 32.3 25.0 - 33.0 pg [facility] MCHC 34.0 32.0 - 36.0 g/dL [facility] RDW 12.8 11.0 - 16.0 % [facility] MPV 10.5 8.4 - 12.8 fl [facility] Blood 05/13/2022 10:3 5 AM EST 05/13/2022 10:37 AM EST us Milan Aleman MD LAB BLOOD ORDERABLES Final R esult Performing Organization Address [facility] Co de Phone Number [address] [address] documented in this encounter Visit Diagnoses Diagnosis Bloating- Primary Flatulence, eructation, and gas pain Change in bowel habits Other symptoms involving digestive system documented in this encounter Additional Health Concerns Infection Onset Date Last Indicated Resolved Time CoV-Risk 11/27/2024 11/27/2024 12/08/2024 1:21 AM EDT documented as of this encounter Care Teams Athletic Gear Custodian Relationship Specialty Start Date End Date Malena Stephens MD [address] [place] [address] PCP - General 06/26/17 07/01/22 Ashok Esparza MD [address] [place] [address] [place] [address] PCP - General Internal Medicine 07/02/22 Luz Locke MD [address] [place] [address] [place] [address] [email or web address] Geriatric Medicine 07/02/22 documented as of this encounter Additional Source Comments The information contained in this document represents components of the legal health record. It is not the complete legal health record.[facility]
--- OUTSIDE RECORDS SUMMARY | 2025-02-18 13:41 | XMS_ITS | Encounter Summary ---
Author Organization [facility] Address [address] [facility] [address] [place] [address] Phone Care Team Providers Care Aviation Support Equipment Repairer Name Role Phone Ashok Esparza MD Primary Care Provider [phone] Luz Locke MD Unavailable [phone] Encounter Details Date Type Department Care Team (Late st Contact Info) Description 09/23/2022 Procedure Pass [facility], Ct Scan - [address] [address] Social History Tobacco Use Types Packs/Day Years Used Date Smoking Tobacco: Never Smokeless Tobacco: Never Alcohol Use Standard Drinks/Week Comments Yes 5 (1 standard drink = 0.6 oz pur e alcohol) Intimate Partner Violence Answer Date R ecorded Are you denied basic needs s uch as food, clothing, or medical care? No 09/23/2022 In the past 12 months have y ou been in a relationship with a person who hurts, threatens, or tries to control you? No 09/23/2022 Are you denied basic needs s uch as food, clothing, or medical care? No 09/23/2022 In the past 12 months have y ou been in a relationship with a person who hurts, threatens, or tries to control you? No 09/23/2022 Comments No Sex and Gender Information Value Date Recorded Sex Assigned at Female 07/22/2022 10:51 AM EST Legal Sex Female 7:34 PM EST Gender Identity Female 07/22/2022 10:51 AM EST Sexual Orientation Straight 07/22/2022 10 :51 AM EST documented as of this encounter Functional Status * Calculated C-SSRS Risk Score (Lifetime/Recent) Answer Date of Assessment Author No Risk Indicated 09/23/2022 7:06 AM EDT Adry Mtz RN * White Suicide Severity Rating Scale (Screener/Recent Self-Report) Question Answer Date of Assessment Author 1. Wish to be (Past 1 Month) No 09/23/2022 7:06 AM EDT Ian Black RN 2. Non-Specific Active Suicidal Thoughts (Past 1 Month) No 09/23/2022 7:06 AM EDT Ian Black RN 6. Suicidal Behavior (Lifetime) No 09/23/2022 7:06 AM EDT Ian Black RN documented as of this encounter Plan of Treatment Upcoming Encounters Date Type Department Care Team (Late st Contact Info) Description 09/10/2024 Procedure Pass [address] [address] 03/28/2025 11:30 AM EDT Appointment [address] [address] Kaden Anguiano MD [address] [place] [address], [address] [address] [email or web address] documented as of this encounter Visit Diagnoses Not on filedocumented in this encounter Additional Health Concerns Infection Onset Date Last Indicated Resolved Time CoV-Risk 11/27/2024 11/27/2024 12/08/2024 1:21 AM EDT Assessment Noted Time PHQ-9 Depression Total Score: 4 07/02/19 10:32 AM EST PHQ-2 Depression Total Score: 2 07/02/19 10:32 AM EST documented as of this encounter Care Teams Aviation Support Equipment Repairer Relationship Specialty Start Date End Date Ashok Esparza MD [address] [place] [address] [place] [address] PCP - General Internal Medicine 07/02/22 Luz Locke MD [address] [place] [address] [place] [address] [email or web address] Geriatric Medicine 07/02/22 documented as of this encounter Additional Source Comments The information contained in this document represents components of the legal health record. It is not the complete legal health record.[facility]
--- OUTSIDE RECORDS SUMMARY | 2025-02-18 13:41 | XMS_ITS | Encounter Summary ---
Author Organization [facility] Address [address] [place] [address] Phone Care Team Providers Care Sailing Instructor Name Role Phone Ashok Esparza MD Primary Care Provider Luz Locke MD Unavailable Encounter Details Date Type Department Care Team (Latest Contact Info) Description 07/17/2022 Transcribe Orders [facility] Specimen Processing [address] [place] [address] Joseph Esparza MD [address] [facility], 2nd [place] [address] Bloating (Primary Dx) Social History Tobacco Use Types [...] st Contact Info) Description 09/10/2024 Procedure Pass [facility] [address] [place] [address] 03/28/2025 11:30 AM EDT Appointment [address] [address] Kaden Anguiano MD [address] [facility], [address] [place] [address] [email or web address] documented as of this encounter Visit Diagnoses Diagnosis Bloating- Primary Flatulence, eructation, and gas pain documented in this encounter Additional Health Concerns Infection Onset Date Last Indicated Resolved Time CoV-Risk 11/27/2024 11/27/2024 12/08/2024 1:21 AM EDT Assessment Noted Time PHQ-9 Depression Total Score: 4 07/02/19 10:32 AM EST PHQ-2 Depression Total Score: 2 07/02/19 10:32 AM EST documented as of this encounter Care Teams Sailing Instructor Relationship Specialty Start Date End Date Ashok Esparza MD [address] [place] [address] [place] [address] PCP - General Internal Medicine 07/02/22 Luz Locke MD [address] [place] [address] [place] [address] [email or web address] Geriatric Medicine 07/02/22 documented as of this encounter Additional Source Comments The information contained in this document represents components of the legal health record. It is not the complete legal health record.[facility]
[2025-02-18 13:46] VITALS: BP 122/72; PULSE 81; RESP 16; TEMP 36.9; O2SAT 99; BMI 26.4
== END 2025-02-18 14:22 | disposition home or self-care (01) ==
LOC: HO.HMCHD 13:31
PROVIDERS: PCP Family Medicine; Visit Provider Physician Assistant
DX: J45.909 Unspecified asthma, uncomplicated (principal); L65.9 Nonscarring hair loss, unspecified; R53.83 Other fatigue; A69.20 Lyme disease, unspecified

== ENCOUNTER → 2025-02-18 13:31 | Outpatient (BNVA) | payer OTHER, MEDICARE, SELFPAY | PROVIDERS: PCP Family Medicine; Visit Provider Physician Assistant | DX: Z76.89 Persons encountering health services in other specified circumstances (principal); J45.909 Unspecified asthma, uncomplicated; L65.9 Nonscarring hair loss, unspecified; R53.83 Other fatigue; A69.20 Lyme disease, unspecified; I95.1 Orthostatic hypotension; G11.10 Early-onset cerebellar ataxia, unspecified; I87.2 Venous insufficiency (chronic) (peripheral); Z87.820 Personal history of traumatic brain injury; Z13.31 Encounter for screening for depression | CPT/HCPCS: 96127 ==

== ENCOUNTER 2025-02-22 11:01 | Outpatient (REF) | payer OTHER, MEDICARE, SELFPAY ==
[2025-02-22 11:19] LABS: MANUAL DIFF FLAG NO
[2025-02-22 12:16] LABS: Hematocrit 38.9 % (37.0-47.0); Hemoglobin 13.5 g/dl (12.0-16.0); Imm Gran Abs Auto 0.02 X10*3/uL (0.00-0.03); Imm Gran Pct Auto 0.3 % (0.0-0.4); Lymphocytes Absolute Auto 1.8 X10*3/uL (1.2-4.9); Mean Corpuscular HGB Conc 34.7 g/dl (31.0-35.0); Mean Corpuscular Hemoglobin 32.1 pg (27.0-33.0); Mean Corpuscular Volume 92.6 fL (80.0-98.0); NRBC Abs Auto 0.000 X10*3/uL (0.0-0.012); NRBC Pct Auto 0.0 /100WBC (0.0-0.2); Platelet Count 318 X10*3/uL (160-400); Red Blood Count 4.20 X10*6/uL (4.20-5.50); White Blood Count 6.3 X10*3/uL (4.8-10.8)
--- OUTSIDE RECORDS SUMMARY | 2025-02-22 12:38 | XMS_ITS | Encounter Summary ---
Author Organization [facility] Address [address] [facility] [address] [place] [address] Phone Care Team Providers Care Drugless Physician Name Role Phone Ashok Esparza MD Primary Care Provider [phone] Luz Locke MD Unavailable Encounter Details Date Type Department Care Team (Late st Contact Info) Description 07/25/2022 Procedure Pass [facility] Endoscopy Admitting Dept Virtual Department [address] [place] [address] Social History Tobacco Use Types Packs/Day Years [...] st Contact Info) Description 09/10/2024 Procedure Pass [address] [address] 03/28/2025 11:30 AM EDT Appointment [address] [place] [address] Kaden Anguiano MD [address] [facility], [address] [place] [address] [email or web address] documented as of this encounter Visit Diagnoses Not on filedocumented in this encounter Additional Health Concerns Infection Onset Date Last Indicated Resolved Time CoV-Risk 11/27/2024 11/27/2024 12/08/2024 1:21 AM EDT Assessment Noted Time PHQ-9 Depression Total Score: 4 07/02/19 10:32 AM EST PHQ-2 Depression Total Score: 2 07/02/19 10:32 AM EST documented as of this encounter Care Teams Drugless Physician Relationship Specialty Start Date End Date Ashok Esparza MD [address] [place] [address] [place] [address] PCP - General Internal Medicine 07/02/22 Luz Locke MD [address] [place] [address] [place] [address] [email or web address] Geriatric Medicine 07/02/22 documented as of this encounter Additional Source Comments The information contained in this document represents components of the legal health record. It is not the complete legal health record.[facility]
--- OUTSIDE RECORDS SUMMARY | 2025-02-22 12:38 | XMS_ITS | Encounter Summary ---
Author Organization [facility] Address [address] [facility] [address] [place] [address] Phone Care Team Providers Care Whistle Punk Name Role Phone Ashok Esparza MD Primary Care Provider [phone] Luz Locke MD Unavailable [phone] Encounter Details Date Type Department Care Team (Late st Contact Info) Description 09/23/2022 Procedure Pass , Ct Scan - [address] [address] Social History Tobacco Use Types Packs/Day Years [...] 7:06 AM EDT Adry Mtz RN * [place] Suicide Severity Rating Scale (Screener/Recent Self-Report) Question [...] st Contact Info) Description 09/10/2024 Procedure Pass [address] [address] 03/28/2025 11:30 AM EDT Appointment [address] [address] Kaden Anguiano MD [address] [place] [address], [address] [address] [email or web address] documented as of this encounter Visit Diagnoses Not on filedocumented in this encounter Additional Health Concerns Infection Onset Date Last Indicated Resolved Time CoV-Risk 11/27/2024 11/27/2024 12/08/2024 1:21 AM EDT Assessment Noted Time PHQ-9 Depression Total Score: 4 07/02/19 10:32 AM EST PHQ-2 Depression Total Score: 2 07/02/19 10:32 AM EST documented as of this encounter Care Teams Whistle Punk Relationship Specialty Start Date End Date Ashok Esparza MD [address] [place] [address] [place] [address] PCP - General Internal Medicine 07/02/22 Luz Locke MD [address] [place] [address] [place] [address] [email or web address] Geriatric Medicine 07/02/22 documented as of this encounter Additional Source Comments The information contained in this document represents components of the legal health record. It is not the complete legal health record.[facility]
--- OUTSIDE RECORDS SUMMARY | 2025-02-22 12:38 | XMS_ITS | Encounter Summary ---
Author Organization [facility] Address [address] [facility] [address] [place] [address] Phone Care Team Providers Care Retail Supervisor Name Role Phone Ashok Esparza MD Primary Care Provider Luz Locke MD Unavailable [phone] Encounter Details Date Type Department Care Team (Latest Contact Info) Description 07/17/2022 Transcribe Orders [facility] Specimen Processing [address] [place] [address] Joseph Esparza MD [address] [facility], 2nd [place] [address] Bloating (Primary Dx) Social History Tobacco Use [...] st Contact Info) Description 09/10/2024 Procedure Pass [facility] [address] [place] [address] 03/28/2025 11:30 AM EDT Appointment [address] [address] Kaden Anguiano MD [address] [facility], [address] [place] [address] documented as of this encounter Visit Diagnoses [...] documented as of this encounter Care Teams Retail Supervisor Relationship Specialty Start Date End Date Ashok Esparza MD [address] [place] [address] [place] [address] PCP - General Internal Medicine 07/02/22 Luz Locke MD [address] [place] [address] [place] [address] Geriatric Medicine 07/02/22 documented as of this encounter Additional Source Comments The information contained in this document represents components of the legal health record. It is not the complete legal health record.[facility]
--- OUTSIDE RECORDS SUMMARY | 2025-02-22 12:38 | XMS_ITS | Clinical Summary ---
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 Encounters Date Type Department Care Team Description 11/26/2024 11:50 PM EDT - 11/27/2024 3:52 AM EDT Emergency [facility] [address] [place] [address] Discharge Disposition: Home or Self Care from [...] st Contact Info) Description 09/10/2024 Procedure Pass [address] [address] 03/28/2025 11:30 AM EDT Appointment [address] [address] Kaden Anguiano MD [address] [place] [address], [address] [place] [address] [email or web address] Health Maintenance Due Date Last Done Comments [...] (11/27/2024 1:21 AM EDT) COLOR Yellow Yellow [facility] CLARITY HAZY [facility] GLUCOSE Negative Negative [facility] BILI Negative Negative [facility] KETONES 1+(A) Negative [facility] SPECIFIC GRAVITY 1.010 1.005 - 1.030 [facility] BLOOD 2+(A) Negative [facility] PH 6.0 5.0 - 8.0 [facility] Protein-UA Negative Negative [facility] NITRITE Negative Negative [facility] Leukocyte esterase, ur Trace(A) Negative [facility] Urine (Urine) 11/27/2024 1:2 1 AM EDT 11/27/2024 1:26 AM EDT Hernan López MD URINE ORDERABLES Final Resu lt Performing Organization Address [facility] [[email or web address]] Co de Phone Number [address] [address] * (ABNORMAL) Urine sediment (11/27/2024 1:21 AM EDT) WBC 5-10(A) NONE SEEN /hpf [facility] RBC 3-5(A) NONE SEEN /hpf [facility] URINE EPITHELIAL 11-20(A) NONE SEEN [facility] MUCUS 2+(A) NONE SEEN /hpf [facility] BACTERIA 1+(A) NONE SEEN /hpf [facility] 11/27/2024 1:21 AM EDT 11/27/2024 1:26 AM EDT Hernan López MD URINE ORDERABLES Final Resu lt Performing Organization Address [facility] [[email or web address]] Co de Phone Number [address] [address] * Babesia species PCR (11/27/2024 1:15 AM EDT) B.Microti PCR Negative Negative [facility] MED AND PAT+ B.Duncani PCR Negative Negative [facility] PAT+ B.Divergens/MO-1 PCR Negative Negative [facility] DPT OF LAB MED AND PAT+ Comment: (NOTE) ADDITIONAL INFORMATION This test was developed and its performance characteristics determined by [facility] in a manner consistent with CLIA requirements. This test has not been cleared or approved by the U.S. Food and Drug Administration. Blood 11/27/2024 1:15 AM EDT 11/27/2024 1:25 AM EDT us Josue Lepe PA-C LAB BLOOD ORDERABLES Final R esult [facility] DPT OF LAB MED AND PAT+ [address] [place] [address] * Lyme Western blot only (11/27/2024 1:15 AM EDT) IGG Immunoblot Negative Negative [facility] LAB MED/PATH [address] IGG BANDS (KDA) None kDa [facility] LAB MED/PATH [address] IGM Immunoblot Negative Negative [facility] MED/[address] DR IGM BANDS (KDA) p23 kDa [facility] LAB MED/PATH [address] DR Interpretation - Lyme SEE NOTE [facility] LAB MED/PATH [facility]PER[facility] Comment: (NOTE) Specific serologic [...] ORDERABLES Final R esult Performing Organization Address [facility] [[email or web address]] Co de Phone Number [facility] LAB MED/PATH [address] [place] [address] * Ehrlichia/anaplasma PCR (11/27/2024 1:15 AM EDT) [facility] ANAPLASMA PHAGOCYTO Negative Negative [facility] DPT OF LAB MED AND PAT+ EHRLICHIA CHAFFEENS Negative Negative [facility] DPT OF LAB MED AND PAT+ EHRL EWINGII/CANIS Negative Negative [facility] DPT OF LAB MED AND PAT+ EHRL MURIS-LIKE Negative Negative [facility] DPT OF LAB MED AND PAT+ Comment: (NOTE) ADDITIONAL INFORMATION This test was developed and its performance characteristics determined by [facility] in a manner consistent with CLIA requirements. This test has not been cleared or approved by the U.S. Food and Drug Administration. Blood 11/27/2024 1:15 AM EDT 11/27/2024 1:25 AM EDT Josue Lepe PA-C LAB BLOOD ORDERABLES Final R esult Performing Organization Address [facility] [[email or web address]] Co de Phone Number [facility] DPT OF LAB MED AND PAT+ [address] [place] [address] * (ABNORMAL) Lyme Screen with Reflex to Immunoblot, Blood (11/27/2024 1:15 AM EDT) [facility] Lyme AB IgG Negative Negative [facility] Lyme AB IgM Positive(A) Negative [facility] Comment:The Lyme Disease Ant ibody, Confirmation, Serum (Western Blot) has been reflexed. The results will follow. Blood 11/27/2024 1:15 AM EDT 11/27/2024 1:24 AM EDT Josue Lepe PA-C LAB BLOOD ORDERABLES Final R esult Performing Organization Address [facility] [[email or web address]] Co de Phone Number [address] [address] * COVID Pandemic Respiratory Viral Order (PRO) (11/27/2024 1:01 AM EDT) [facility] Test Ordered Rapid COVID, Flu has been ordered [facility] Specimen Source/Descriptio n NASOPHARYNGEAL SWAB [facility] Influenza A PCR Not Detected Not Detected [facility] Influenza B PCR Not Detected Not Detected [facility] SARS-CoV 2 (COVID-19) PCR Not Detected Not Detected [facility] Comment: SARS-CoV-2 not detected Negative results do not preclude SARS-CoV-2 infection and should not be used as the sole basis for patient management decisions. Negative results must be combined with clinical observations, patient history, and epidemiological information. Other (Nasopharyngeal swab) 11/27/2024 1:01 AM EDT 11/27/2024 1:06 AM EDT Josue Lepe PA-C BODY FLUIDS AND STOOLS ORDER MICHAEL Final Result Performing Organization Address [facility] de Phone Number [address] [address] * ECG 12-LEAD (11/26/2024 11:58 PM EDT) [facility] Ventricular Rate EKG/MIN 63 BPM [facility] Atrial Rate 63 BPM [facility] GA Interval 136 ms [facility] QRS Duration 78 ms [facility] QT Interval 394 ms [facility] QTC Interval 403 ms [facility] P Edison 28 degrees [facility] R Wave Edison 8 degrees [facility] T Wave Edison 9 degrees [facility] 11/26/2024 11:5 8 PM EDT 11/27/2024 10:20 AM EDT Narrative [facility] - 11/27/2024 10:20 AM EDT Normal sinus rhythm Normal ECG No previous ECGs available Confirmed by Jeffrey Dos Santos ([id number]) on 11/27/2024 10:20:19 AM Hernan López MD ECG ORDERABLES Final Resul t [facility] * (ABNORMAL) LFTs (hepatic panel) (11/26/2024 10:10 PM EDT) ALKALINE PHOSPHATASE 103 39 - 117 U/L [facility] TOTAL BILIRUBIN 0.6 0.0 - 1.2 mg/dL [facility] DIRECT BILIRUBIN 0.2 0.0 - 0.2 mg/dL [facility] Bilirubin (Indirect) 0.4 0 - 1.5 mg/dL [facility] AST 85(H) 0 - 37 U/L [facility] ALT 59(H) 0 - 40 U/L [facility] TOTAL PROTEIN 6.8 6.5 - 8.0 g/dL [facility] ALBUMIN 4.0 3.9 - 4.8 g/dL [facility] GLOBULIN 2.8 1 - 4.8 g/dL [facility] A/G Ratio 1.43 1.00 - 4.80 RATIO [facility] Blood 11/26/2024 10:1 0 PM EDT 11/26/2024 10:21 PM EDT Hernan López MD LAB BLOOD ORDERABLES Final Result [facility] [address] [place] [address] * (ABNORMAL) CBC and differential (11/26/2024 10:10 PM EDT) WBC 8.74 4.00 - 11.00 K/uL [facility] RBC 4.27 4.00 - 5.20 M/uL [facility] HGB 13.4 12.0 - 16.0 g/dL [facility] HCT 39.1 36.0 - 46.0 % [facility] PLT 225 150 - 450 K/uL [facility] MCV 91.6 80.0 - 100.0 fL [facility] MCH 31.4(H) 27.0 - 31.0 pg [facility] MCHC 34.3 32.0 - 36.0 g/dL [facility] RDW 12.7 11.5 - 14.5 % [facility] MPV 9.9 8.4 - 12.0 fL [facility] NRBC 0.00 0.00 /100 WBCs [facility] ABSOLUTE NRBC 0.00 0.00 K/uL [facility] DIFF METHOD Auto [facility] NEUTS 88.6(H) 48.0 - 76.0 % [facility] LYMPHS 6.3(L) 18.0 - 41.0 % [facility] MONOS 4.3 4.0 - 11.0 % [facility] EOS 0.0 0.0 - 5.0 % [facility] BASOS 0.5 0.0 - 1.5 % [facility] Granulocytes, immature (%) 0.3 0.0 - 0.9 % [facility] ABSOLUTE NEUTS 7.74(H) 1.92 - 7.60 K/uL [facility] ABSOLUTE LYMPHS 0.55(L) 0.72 - 4.10 K/uL [facility] ABSOLUTE MONOS 0.38 0.16 - 1.10 K/uL [facility] ABSOLUTE EOS 0.00 0.00 - 0.50 K/uL [facility] ABSOLUTE BASOS 0.04 0.00 - 0.15 K/uL [facility] Granulocytes, immature 0.03 0.00 - 0.09 K/uL [facility] Blood 11/26/2024 10:1 0 PM EDT 11/26/2024 10:21 PM EDT us Hernan López MD LAB BLOOD ORDERABLES Final Result [address] [address] * Magnesium (11/26/2024 10:10 PM EDT) Pathologist [facility] MAGNESIUM 2.0 1.6 - 2.6 mg/dL [facility] Blood 11/26/2024 10:1 0 PM EDT 11/26/2024 10:21 PM EDT Hernan López MD LAB BLOOD ORDERABLES Final Result [address] [address] * Lipase (11/26/2024 10:10 PM EDT) Pathologist [facility] LIPASE 30 16 - 63 U/L [facility] Blood 11/26/2024 10:1 0 PM EDT 11/26/2024 10:21 PM EDT Hernan López MD LAB BLOOD ORDERABLES Final Result Performing Organization Address [facility]/ZIP Co de Phone Number [address] [address] * Lactate (11/26/2024 10:10 PM EDT) [facility] LACTATE 0.85 0.50 - 2.20 mmol/L [facility] Blood 11/26/2024 10:1 0 PM EDT 11/26/2024 10:15 PM EDT Hernan López MD LAB BLOOD ORDERABLES Final Result Performing Organization Address [facility]/ZIP Co de Phone Number [address] [address] * (ABNORMAL) Basic metabolic panel (11/26/2024 10:10 PM EDT) Pathologist [facility] SODIUM 131(L) 133 - 146 mmol/L [facility] CHLORIDE 94(L) 96 - 108 mmol/L [facility] POTASSIUM 4.0 3.3 - 5.1 mmol/L [facility] CO2 25 21 - 35 mmol/L [facility] BUN 16 6 - 19 mg/dL [facility] CREATININE 0.90 0.5 - 1.5 mg/dL [facility] GLUCOSE 130(H) 70 - 99 mg/dL [facility] CALCIUM 9.5 8.4 - 10.3 mg/dL [facility] EGFR 68 >59 mL/min/1.7 3m2 [facility] Comment:Estimated glomerular filtration rate calculated using the CKD-EPI refit equation. ANION GAP 16 10 - 20 mmol/L [facility] Blood 11/26/2024 10:1 0 PM EDT 11/26/2024 10:21 PM EDT us Hernan López MD LAB BLOOD ORDERABLES Final Result Performing Organization Address City/State/[facility] [[email or web address]] Co de Phone Number [address] [address] * ENDOSCOPY, COLON (07/25/2022 11:50 AM EST) Narrative Transcriptions Milan Giraldo MD - 07/25/2022 11:50 AM EST [facility] Patient Name: Brooklynn Waite MD:: MILAN GIRALDO MD Procedure Date: 07/25/2022 11:50 AM Date of : 1955 Age: 66 Admit Type: Outpatient Gender: Female Room: [facility] Referring MD: AMISHA ESPARZA Exam Type: Colonoscopy [...] monitored continuously. The Olympus adult variable colonoscope [id number] #1 was introduced through the anus and [...] medications. - [facility] - Your colonoscopy was normal with no polyps or colitis. MILAN GIRALDO MD 07/25/2022 12:13:06 PM This report has been signed electronically. Number of Addenda: 0 Note Initiated On: 07/25/2022 11:50 AM Procedure Code(s): --- Professional --- 34559, Colonoscopy, flexible; diagnostic, including collection of specimen(s) by brushing or washing, when performed (separateprocedure) --- Technical --- 56942, Colonoscopy, flexible; diagnostic, including collection of specimen(s) by brushing or washing, when performed (separateprocedure) Diagnosis Code(s): --- Professional --- R19.4, Change in bowel habit --- Technical --- R19.4, Change in bowel habit CPT copyright 2020 [employer]. All rights reserved. The codes documented in this report are preliminary and upon public health advisor reviewmay be revised to meet current compliance requirements. Procedure Date: 07/25/2022 11:50:[address] [place] [address] Amisha Esparza MD GI PROCEDURE ORDERABLES Fin al Result from Last 3 Months or Most Recently Relevant to Health Maintenance Insurance MEDICARE PART A & B [facility] MEDICARE SUPPLEMENT MEDICARE PART A & B [...] Advance Directives For more information, please contact: [phone] (9AM - 5PM Jenny/[facility], Friday-Friday) Documents on File Type Date Recorded Patient Parachute [employer] Sewer Expl anation Healthcare Proxy 07/05/2022 4:36 PM Care Teams Absorption Operator Relationship Specialty Start Date End Date Amisha Esparza MD [address] [place] [address] Dr [place] [facility] [place] [address] PCP - General Internal Medicine 07/02/22 Luz Locke MD [address] [place] [address] [place] [address] [email or web address] Geriatric Medicine 07/02/22 Additional Source Comments The information contained in this document represents components of the legal health record. It is not the complete legal health record.[facility]
--- OUTSIDE RECORDS SUMMARY | 2025-02-22 12:38 | XMS_ITS | Encounter Summary ---
Author Organization [facility] Address [address] [place] [address] Phone Care Team Providers Care Director Of Logistics Name Role Phone Malnea Stephens MD Primary Care Provider Ashok Esparza MD Primary Care Provider [phone] Luz Locke MD Unavailable [phone] Reason for Referral * Physical Therapy - Closed Specialty Diagnoses / Procedures Referred By Rose Mary terrell Referred To Contact Physical Therapy Diagnoses Encounter for rehabilitation Malena Stephens MD Phone: tel: fax: [address] [address] Phone: tel: Referral ID Status Reason Start Date Expiration Date Visits Re quested Visits Authorized [id number] Closed 09/09/2017 11/18/2017 25 25 Encounter Details Date Type Department Care Team (Latest Contact Info) Description 08/20/2017 Transcribe Orders [facility] [address] [place] [address] Malena Stephens MD [address] [place] [address] Encounter for rehabilitation (Primary Dx) Social History [...] st Contact Info) Description 09/10/2024 Procedure Pass [address] [address] 03/28/2025 11:30 AM EDT Appointment [address] [address] Kaden Anguiano MD [address] [place] [address], [address] [address] [email or web address] Scheduled Referrals Name Type Priority Associated Diagnoses Orde r Schedule Ambulatory referral to [facility] Physical Therapy Outpatient Referral Routine Encounter for rehabilitation Ordered: 08/20/2017 documented as of this encounter Visit Diagnoses Diagnosis Encounter for rehabilitation- Primary documented in this encounter Additional Health Concerns Infection Onset Date Last Indicated Resolved Time CoV-Risk 11/27/2024 11/27/2024 12/08/2024 1:21 AM EDT documented as of this encounter Care Teams Director Of Logistics Relationship Specialty Start Date End Date [facility] Stephens [facility] [place] [address] PCP - General 06/26/17 07/01/22 Ashok Esparza MD [address] [place] [address] [place] [address] PCP - General Internal Medicine 07/02/22 Luz Locke MD [address] [place] [address] [place] [address] [email or web address] Geriatric Medicine 07/02/22 documented as of this encounter Additional Source Comments The information contained in this document represents components of the legal health record. It is not the complete legal health record.[facility]
--- OUTSIDE RECORDS SUMMARY | 2025-02-22 12:38 | XMS_ITS | Encounter Summary ---
Author Organization [facility] Address [address] [place] [address] Phone Care Team Providers Care Stock Drier Tender Name Role Phone Malena Stephens MD Primary Care Provider Ashok Esparza MD Primary Care Provider Luz Locke MD Unavailable Encounter Details Date Type Department Care Team (Latest Contact Info) Description 05/13/2022 Transcribe Orders [facility] [address] [place] [address] Milan Aleman MD [address] [place], [place] [id number] Bloating (Primary Dx); Change in bowel habits [...] st Contact Info) Description 09/10/2024 Procedure Pass [address] [address] 03/28/2025 11:30 AM EDT Appointment [address] [address] Kaden Anguiano MD [address] [place] [address], [address] [place] [address] [email or web address] documented as of this encounter Results * Celiac Screening Test Panel (05/13/2022 10:35 AM EST) IgA 195 61 - 356 mg/dL [facility] [address] Celiac Disease Panel/Interpret ation SEE NOTE [facility] Comment: (NOTE) See [...] MD LAB BLOOD ORDERABLES Final R esult [facility] LAB MED/PATH [address] [place] [address] * Lipase (05/13/2022 10:35 AM EST) LIPASE 39 16 - 63 U/L [facility] Blood 05/13/2022 10:3 5 AM EST 05/13/2022 10:37 AM EST us Milan Aleman MD LAB BLOOD ORDERABLES Final R esult [facility] [address] [place] [address] * (ABNORMAL) C-Reactive Protein (05/13/2022 10:35 AM EST) C REACTIVE PROTEIN 4.9(H) 0.0 - 4.0 mg/L [facility] Blood 05/13/2022 10:3 5 AM EST 05/13/2022 10:37 AM EST Milan Aleman MD LAB BLOOD ORDERABLES Final R esult Performing Organization Address City/[facility] Co de Phone Number [address] [address] * Comprehensive metabolic panel (05/13/2022 10:35 AM EST) Pathologist [facility] SODIUM 142 133 - 146 mmol/L [facility] POTASSIUM 4.0 3.3 - 5.1 mmol/L [facility] CHLORIDE 104 96 - 108 mmol/L [facility] CO2 28 21 - 35 mmol/L [facility] BUN 14 6 - 19 mg/dL [facility] CREATININE 0.70 0.5 - 1.5 mg/dL [facility] GLUCOSE 83 70 - 99 mg/dL [facility] ALBUMIN 4.4 3.9 - 4.8 g/dL [facility] TOTAL PROTEIN 6.7 6.5 - 8.0 g/dL [facility] CALCIUM 9.8 8.4 - 10.3 mg/dL [facility] ALKALINE PHOSPHATASE 100 39 - 117 U/L [facility] TOTAL BILIRUBIN 0.5 0.0 - 1.2 mg/dL [facility] AST 25 0 - 37 U/L [facility] ALT 11 0 - 40 U/L [facility] GLOBULIN 2.3 1 - 4.8 g/dL [facility] EGFR 94 >59 mL/min/1.7 3m2 [facility] Comment:Estimated glomerular filtration rate calculated using the CKD-EPI refit equation. ANION GAP 14 10 - 20 mmol/L [facility] Blood 05/13/2022 10:3 5 AM EST 05/13/2022 10:37 AM EST Milan Aleman MD LAB BLOOD ORDERABLES Final R esult Performing Organization Address City/[facility] Co de Phone Number [address] [address] * CBC (05/13/2022 10:35 AM EST) WBC 7.00 4.00 - 11.00 K/uL [facility] RBC 4.33 3.72 - 5.30 M/uL [facility] HGB 14.0 11.4 - 15.9 g/dL [facility] HCT 41.2 34.2 - 46.8 % [facility] PLT 349 140 - 430 K/uL [facility] MCV 95.2 78.0 - 97.0 fL [facility] MCH 32.3 25.0 - 33.0 pg [facility] MCHC 34.0 32.0 - 36.0 g/dL [facility] RDW 12.8 11.0 - 16.0 % [facility] MPV 10.5 8.4 - 12.8 fl [facility] Blood 05/13/2022 10:3 5 AM EST 05/13/2022 10:37 AM EST us Milan Aleman MD LAB BLOOD ORDERABLES Final R esult Performing Organization Address [facility] Co de Phone Number [address] [address] documented in this encounter Visit Diagnoses Diagnosis Bloating- Primary Flatulence, eructation, and gas pain Change in bowel habits Other symptoms involving digestive system documented in this encounter Additional Health Concerns Infection Onset Date Last Indicated Resolved Time CoV-Risk 11/27/2024 11/27/2024 12/08/2024 1:21 AM EDT documented as of this encounter Care Teams Stock Drier Tender Relationship Specialty Start Date End Date Malena Stephens MD [address] [place] [address] PCP - General 06/26/17 07/01/22 Ashok Esparza MD [address] [place] [address] [place] [address] PCP - General Internal Medicine 07/02/22 Luz Locke MD [address] [place] [address] [place] [address] [email or web address] Geriatric Medicine 07/02/22 documented as of this encounter Additional Source Comments The information contained in this document represents components of the legal health record. It is not the complete legal health record.[facility]
[2025-02-22 13:29] LABS: Anion Gap 12 (12-20); Blood Urea Nitrogen 18 mg/dL (9-16); Calcium 9.3 mg/dL (8.4-10.2); Carbon Dioxide 27 mmol/L (22-29); Chloride 108 mmol/L (96-108); Estimated Glomerular Filt Rate > 60; Iron 94 mcg/dL (30-160); Percent Iron Saturation 31 % (15-50); Potassium 4.3 mmol/L (3.3-5.1); Sodium 143 mmol/L (135-145); Total Iron Binding Capacity 301 mcg/dL (228-428); Unsaturated Iron Binding 207 ug/dL
[2025-02-22 13:33] LABS: Vitamin B12 437 pg/mL (200-900)
[2025-02-23 13:12] LABS: Lyme Blot 4.27 index
[2025-02-25 10:47] LABS: 39KD (IgG) Band REACTIVE; 41KD (IgG) Band REACTIVE; Lyme Abs Screen POSITIVE; Lyme IgG Blot Interp NEGATIVE (NEGATIVE); Lyme IgM Blot Interp NEGATIVE (NEGATIVE)
== END 2025-02-22 11:02 | disposition home or self-care (01) ==
LOC: HO.LAB 11:01
PROVIDERS: PCP Physician Assistant; Visit Provider Physician Assistant
DX: R53.83 Other fatigue (principal); A69.20 Lyme disease, unspecified; L65.9 Nonscarring hair loss, unspecified; J45.909 Unspecified asthma, uncomplicated; Z13.29 Encounter for screening for other suspected endocrine disorder; Z01.84 Encounter for antibody response examination
CPT/HCPCS: 36415; 80048; 82306; 82607; 82627; 83540; 84443; 85025; 86617; 86618

== ENCOUNTER 2025-04-05 11:00 | Outpatient (REF) | payer MEDICARE, OTHER, SELFPAY ==
--- OUTSIDE RECORDS SUMMARY | 2025-04-05 13:16 | XMS_ITS | Encounter Summary ---
Author Organization [facility] Address [address] [facility] [address] [place] [address] Phone Care Team Providers Care Piano Case And Bench Assembler Name Role Phone Ashok Esparza MD Primary Care Provider Luz Locke MD Unavailable [phone] Pcp, Unknown Primary Care Provider Unavailabl e Encounter Details Date Type Department Care Team (Late st Contact Info) Description 09/23/2022 Procedure Pass [facility], Ct Scan - [address] [address] Social History Tobacco Use Types Packs/Day Years [...] 7:06 AM EDT Adry Mtz RN * Chana Suicide Severity Rating Scale (Screener/Recent Self-Report) Question Answer Date of Assessment Author 1. Wish to be (Past 1 Month) No 09/23/2022 7:06 AM EDT Ian Black RN 2. Non-Specific Active Suicidal Thoughts (Past 1 Month) No 09/23/2022 7:06 AM EDT Ian Black RN 6. Suicidal Behavior (Lifetime) No 09/23/2022 7:06 AM EDT Ian Black RN documented as of this encounter Plan of Treatment Not on file documented as of this encounter Visit Diagnoses Not on filedocumented in this encounter Additional Health Concerns Infection Onset Date Last Indicated Resolved Time CoV-Risk 11/27/2024 11/27/2024 12/08/2024 1:21 AM EDT Assessment Noted Time PHQ-9 Depression Total Score: 4 07/02/19 10:32 AM EST PHQ-2 Depression Total Score: 2 07/02/19 10:32 AM EST documented as of this encounter Care Teams Piano Case And Bench Assembler Relationship Specialty Start Date End Date Ashok Esparza MD [address] [place] [address] Dr [place]ERA [facility] [place] [address] PCP - General Internal Medicine 07/02/22 03/23/25 Pcp, Unknown PCP - General 03/24/25 Luz Locke MD [address] [place] [address] [place] [address] [email or web address] Geriatric Medicine 07/02/22 documented as of this encounter Additional Source Comments The information contained in this document represents components of the legal health record. It is not the complete legal health record.[facility]
--- OUTSIDE RECORDS SUMMARY | 2025-04-05 13:16 | XMS_ITS | Encounter Summary ---
Author Organization [facility] Address [address] [facility] [address] [facility] [place] [address] Phone Care Team Providers Care Social Work Assistant Name Role Phone Luz Locke MD Unavailable [phone] Pcp, Unknown Primary Care Provider Unavailabl e Encounter Details Date Type Department Care Team (Late st Contact Info) Description 03/29/2025 Telephone [facility] G[facility]ology [facility] [address] [place] [address] Zahida Mcneil, DAMARIS [address] [address] [email or web address] Social History Tobacco Use Types Packs/Day Years Used Date Smoking Tobacco: Never Smokeless Tobacco: Never Alcohol Use Standard Drinks/Week Comments Yes 3 (1 standard drink = 0.6 oz pur [...] your housing situation today? I have jun rueda 11/27/2024 How many times have you move [...] AM EST documented as of this encounter Progress Notes * Dash Go - 03/30/2025 8:39 AM EDT Patient needs a follow up appointment after EGD * Dash Go - 03/29/2025 11:29 AM EDT Patient needs to schedule an EGD with Dr. Aleman documented in this encounter Plan of Treatment Not on file documented as of this encounter Visit Diagnoses Not on filedocumented in this encounter Additional Health Concerns Assessment Noted Time PHQ-9 Depression Total Score: 3 02/10/20 5:12 PM EDT PHQ-2 Depression Total Score: 2 02/10/20 5:12 PM EDT documented as of this encounter Care Teams Social Work Assistant Relationship Specialty Start Date End Date Pcp, Unknown PCP - General 03/24/25 Luz Locke MD [email or web address] Geriatric Medicine 07/02/22 documented as of this encounter Additional Source Comments The information contained in this document represents components of the legal health record. It is not the complete legal health record.[facility]
--- OUTSIDE RECORDS SUMMARY | 2025-04-05 13:16 | XMS_ITS | Encounter Summary ---
Author Organization [facility] Address [address] [facility] [address] [place] [address] Phone Care Team Providers Care Lead Generator Name Role Phone Ashok Esparza MD Primary Care Provider Luz Locke MD Unavailable [phone] Pcp, Unknown Primary Care Provider Unavailabl e Encounter Details Date Type Department Care Team (Latest Contact Info) Description 07/17/2022 Transcribe Orders [facility] Specimen Processing [address] [place] [address] Joseph Esparza MD [address] [facility], 2nd [place] [address] Bloating (Primary Dx) Social History Tobacco Use [...] documented as of this encounter Care Teams Lead Generator Relationship Specialty Start Date End Date Ashok Esparza MD [address] [place] [address] [place] [address] PCP - General Internal Medicine 07/02/22 03/23/25 Pcp, Unknown PCP - General 03/24/25 Luz Locke MD [address] [place] [address] [place] [address] [email or web address] Geriatric Medicine 07/02/22 documented as of this encounter Additional Source Comments The information contained in this document represents components of the legal health record. It is not the complete legal health record.[facility]
--- OUTSIDE RECORDS SUMMARY | 2025-04-05 13:16 | XMS_ITS | Encounter Summary ---
Author Organization [facility] Address [address] [facility] [address] [facility] [address] [place] [address] Phone Care Team Providers Care Food Processing Scientist Name Role Phone Ashok Esparza MD Primary Care Provider Luz Locke MD Unavailable Pcp, Unknown Primary Care Provider Unavailabl e Encounter Details Date Type Department Care Team (Late st Contact Info) Description 07/25/2022 Procedure Pass [facility] Endoscopy Admitting Dept Virtual Department 30 [place] [address] Social History Tobacco Use Types Packs/Day Years [...] documented as of this encounter Care Teams Food Processing Scientist Relationship Specialty Start Date End Date Ashok Esparza MD [address] [place] [address] [place] [address] PCP - General Internal Medicine 07/02/22 03/23/25 Pcp, Unknown PCP - General 03/24/25 Luz Locke MD [address] [place] [address] [place] [address] [email or web address] Geriatric Medicine 07/02/22 documented as of this encounter Additional Source Comments The information contained in this document represents components of the legal health record. It is not the complete legal health record.[facility]
--- OUTSIDE RECORDS SUMMARY | 2025-04-05 13:16 | XMS_ITS | Encounter Summary ---
Author Organization [facility] Address [address] [facility] [address] [place] [address] Phone Care Team Providers Care Petroleum Geologist Name Role Phone Malena Stephens MD Primary Care Provider Ashok Esparza MD Primary Care Provider [phone] Luz Locke MD Unavailable [phone] Pcp, Unknown Primary Care Provider Unavailabl e Reason for Referral * Physical Therapy - Closed Specialty Diagnoses / Procedures Referred By Rose Mary terrell Referred To Contact Physical Therapy Diagnoses Encounter for rehabilitation Malena Stephens MD Phone: tel: fax: [address] [address] Phone: tel: Referral ID Status Reason Start Date Expiration Date Visits Re quested Visits Authorized [id number] Closed 09/09/2017 11/18/2017 25 25 Encounter Details Date Type Department Care Team (Latest Contact Info) Description 08/20/2017 Transcribe Orders [facility] Rehabilitation [facility] [address] [place] [address] [phone] Malena Stephens MD [address] [place] [address] [phone] Encounter for rehabilitation (Primary Dx) Social History [...] as of this encounter Plan of Treatment Scheduled Referrals Name Type Priority Associated Diagnoses Orde r Schedule Ambulatory referral to [facility] Physical Therapy Outpatient Referral Routine Encounter for rehabilitation Ordered: 08/20/2017 documented as of this encounter Visit Diagnoses Diagnosis Encounter for rehabilitation- Primary documented in this encounter Additional Health Concerns Infection Onset Date Last Indicated Resolved Time CoV-Risk 11/27/2024 11/27/2024 12/08/2024 1:21 AM EDT documented as of this encounter Care Teams Petroleum Geologist Relationship Specialty Start Date End Date Malena Stephens MD [address] [place] [address] PCP - General 06/26/17 07/01/22 Ashok Esparza MD [address] [place] [address] Dr HERRERA [facility] [place] [address] PCP - General Internal Medicine 07/02/22 03/23/25 Pcp, Unknown PCP - General 03/24/25 Luz Locke MD [address] [place] [address] [place] [address] [email or web address] Geriatric Medicine 07/02/22 documented as of this encounter Additional Source Comments The information contained in this document represents components of the legal health record. It is not the complete legal health record.[facility]
--- OUTSIDE RECORDS SUMMARY | 2025-04-05 13:18 | XMS_ITS | Encounter Summary ---
Author Organization [facility] Address [address] [facility] [address] [place] [address] Phone Care Team Providers Care Remote Operations Producer Name Role Phone Ashok Esparza MD Primary Care Provider Luz Locke MD Unavailable [phone] Pcp, Unknown Primary Care Provider Unavailabl e Encounter Details Date Type Department Care Team (Latest Contact Info) Description 03/22/2025 Transcribe Orders [facility] Laboratory [address] [address] Zahida Mcneil, GREGORIO 10 [place] [address] Weight loss (Primary Dx); Fatigue, unspecified type Social History Tobacco Use Types Packs/Day Years [...] on file documented as of this encounter Results * Ferritin (03/22/2025 3:11 PM EDT) FERRITIN 129 13 - 150 ug/L [facility] Blood 03/22/2025 3:11 PM EDT 03/22/2025 3:18 PM EDT Zahida Mcneil SUPERVISOR NUCLEAR MEDICINE LAB BLOOD ORDERABLES Shelley l Result Performing Organization Address City/[facility]/ZIP Co de Phone Number [address] [address] * TSH (03/22/2025 3:11 PM EDT) TSH 2.27 0.27 - 4.20 uIU/mL [facility] Blood 03/22/2025 3:11 PM EDT 03/22/2025 3:18 PM EDT Zahida Mcneil SUPERVISOR NUCLEAR MEDICINE LAB BLOOD ORDERABLES Shelley l Result Performing Organization Address [facility] Co de Phone Number [address] [address] * Iron and iron binding capacity (03/22/2025 3:11 PM EDT) IRON 65 30 - 160 ug/dL [facility] IRON BINDING CAPACITY 360 228 - 428 ug/dL [facility] TRANSFERRIN SATURAT. 18 15 - 50 % [facility] Blood 03/22/2025 3:11 PM EDT 03/22/2025 3:18 PM EDT Zahida Mcneil NP LAB BLOOD ORDERABLES Shelley l Result Performing Organization Address [facility]/ZIP Co de Phone Number [address] [address] * GGT (Gamma glutamyl transferase) (03/22/2025 3:11 PM EDT) GGT 19 7 - 33 U/L [facility] Blood 03/22/2025 3:11 PM EDT 03/22/2025 3:18 PM EDT Zahida Mcneil SUPERVISOR NUCLEAR MEDICINE LAB BLOOD ORDERABLES Shelley l Result [address] [address] * C-Reactive Protein (03/22/2025 3:11 PM EDT) C REACTIVE PROTEIN <3.0 0.0 - 4.0 mg/L [facility] Blood 03/22/2025 3:11 PM EDT 03/22/2025 3:18 PM EDT Zahida Mcneil SUPERVISOR NUCLEAR MEDICINE LAB BLOOD ORDERABLES Shelley l Result [address] [address] * (ABNORMAL) Comprehensive metabolic panel (03/22/2025 3:11 PM EDT) SODIUM 140 133 - 146 mmol/L [facility] POTASSIUM 4.3 3.3 - 5.1 mmol/L [facility] CHLORIDE 102 96 - 108 mmol/L [facility] CO2 27 21 - 35 mmol/L [facility] BUN 15 6 - 19 mg/dL [facility] CREATININE 0.70 0.5 - 1.5 mg/dL [facility] GLUCOSE 95 70 - 99 mg/dL [facility] ALBUMIN 4.2 3.9 - 4.8 g/dL [facility] TOTAL PROTEIN 7.1 6.5 - 8.0 g/dL [facility] CALCIUM 10.6(H) 8.4 - 10.3 mg/dL [facility] ALKALINE PHOSPHATASE 97 39 - 117 U/L [facility] TOTAL BILIRUBIN 0.4 0.0 - 1.2 mg/dL [facility] AST 19 0 - 37 U/L [facility] ALT 11 0 - 40 U/L [facility] GLOBULIN 2.9 1 - 4.8 g/dL [facility] EGFR 92 >59 mL/min/1.7 3m2 [facility] Comment:Estimated glomerular filtration rate calculated using the CKD-EPI refit equation. ANION GAP 15 10 - 20 mmol/L [facility] Blood 03/22/2025 3:11 PM EDT 03/22/2025 3:18 PM EDT Zahida Mcneil NP LAB BLOOD ORDERABLES Shelley l Result [address] [address] * (ABNORMAL) CBC (03/22/2025 3:11 PM EDT) WBC 6.70 4.00 - 11.00 K/uL [facility] RBC 4.42 4.00 - 5.20 M/uL [facility] HGB 14.1 12.0 - 16.0 g/dL [facility] HCT 42.0 36.0 - 46.0 % [facility] PLT 331 150 - 450 K/uL [facility] MCV 95.0 80.0 - 100.0 fL [facility] MCH 31.9(H) 27.0 - 31.0 pg [facility] MCHC 33.6 32.0 - 36.0 g/dL [facility] RDW 12.9 11.5 - 14.5 % [facility] MPV 9.8 8.4 - 12.0 fL [facility] NRBC 0.00 0.00 /100 WBCs [facility] ABSOLUTE NRBC 0.00 0.00 K/uL [facility] Blood 03/22/2025 3:11 PM EDT 03/22/2025 3:18 PM EDT Zahida Mcneil NP LAB BLOOD ORDERABLES Shelley l Result [address] [address] * Immunoglobulin A (03/22/2025 3:11 PM EDT) IgA 214 70 - 400 mg/dL [facility] Blood 03/22/2025 3:11 PM EDT 03/22/2025 3:18 PM EDT us Zahida Nicolezeina SUPERVISOR NUCLEAR MEDICINE LAB BLOOD ORDERABLES Shelley l Result [address] [address] * Tissue transglutaminase IgA (03/22/2025 3:11 PM EDT) TTG IGA ANTIBODY 1.3 <4.0 (Negative) U/mL [facility] MED[facility] Blood 03/22/2025 3:11 PM EDT 03/22/2025 3:17 PM EDT Zahida Aguileramargi SUPERVISOR NUCLEAR MEDICINE LAB BLOOD ORDERABLES Shelley l Result [facility] [address] [place] [address] documented in this encounter Visit Diagnoses Diagnosis Weight loss- Primary Loss of weight Fatigue, unspecified type documented in this encounter Additional Health Concerns Assessment Noted Time PHQ-9 Depression Total Score: 3 02/10/20 5:12 PM EDT PHQ-2 Depression Total Score: 2 02/10/20 5:12 PM EDT documented as of this encounter Care Teams Remote Operations Producer Relationship Specialty Start Date End Date Ashok Esparza MD [address] [place] [address] [place] [address] PCP - General Internal Medicine 07/02/22 03/23/25 Pcp, Unknown PCP - General 03/24/25 Luz Locke MD [address] [place] [address] [place] [address] [email or web address] Geriatric Medicine 07/02/22 documented as of this encounter Additional Source Comments The information contained in this document represents components of the legal health record. It is not the complete legal health record.[facility]
--- OUTSIDE RECORDS SUMMARY | 2025-04-05 13:18 | XMS_ITS | Encounter Summary ---
Author Organization [facility] Address [address] [facility] [address] [place] [address] Phone Care Team Providers Care Avian Keeper Name Role Phone Malena Stephens MD Primary Care Provider Ahsok Esparza MD Primary Care Provider Luz Locke MD Unavailable [phone] Pcp, Unknown Primary Care Provider Unavailabl e Encounter Details Date Type Department Care Team (Latest Contact Info) Description 05/13/2022 Transcribe Orders [facility] [address] 2nd [place] [address] Milan Aleman MD [address] [address] Bloating (Primary Dx); Change in bowel habits [...] EST) IgA 195 61 - 356 mg/dL [facility] Celiac Disease Panel/Interpret ation SEE NOTE [facility] Comment: (NOTE) See Comment: [...] ORDERABLES Final R esult Performing Organization Address [facility] Co de Phone Number [facility] [address] [place] [address] * Lipase (05/13/2022 10:35 AM EST) LIPASE 39 16 - 63 U/L [facility] Blood 05/13/2022 10:3 5 AM EST 05/13/2022 10:37 AM EST Milan Aleman MD LAB BLOOD ORDERABLES Final R esult Performing Organization Address [facility] Co de Phone Number [address] [address] * (ABNORMAL) C-Reactive Protein (05/13/2022 10:35 AM EST) C REACTIVE PROTEIN 4.9(H) 0.0 - 4.0 mg/L [facility] Blood 05/13/2022 10:3 5 AM EST 05/13/2022 10:37 AM EST Milan Aleman MD LAB BLOOD ORDERABLES Final R esult Performing Organization Address [facility] Co de Phone Number [address] [address] * Comprehensive metabolic panel (05/13/2022 10:35 AM EST) SODIUM 142 133 - 146 mmol/L [facility] POTASSIUM 4.0 3.3 - 5.1 mmol/L [facility] CHLORIDE 104 96 - 108 mmol/L [facility] CO2 28 21 - 35 mmol/L [facility] BUN 14 6 - 19 mg/dL [facility] CREATININE 0.70 0.5 - 1.5 mg/dL [facility] GLUCOSE 83 70 - 99 mg/dL [facility] ALBUMIN 4.4 3.9 - 4.8 g/dL [facility] TOTAL PROTEIN 6.7 6.5 - 8.0 g/dL [facility] CALCIUM 9.8 8.4 - 10.3 mg/dL [facility] ALKALINE PHOSPHATASE 100 39 - 117 U/L [facility] TOTAL BILIRUBIN 0.5 0.0 - 1.2 mg/dL [facility] AST 25 0 - 37 U/L [facility] ALT 11 0 - 40 U/L [facility] GLOBULIN 2.3 1 - 4.8 g/dL [facility] EGFR 94 >59 mL/min/1.7 3m2 [facility] Comment:Estimated glomerular filtration rate calculated using the CKD-EPI refit equation. ANION GAP 14 10 - 20 mmol/L [facility] Blood 05/13/2022 10:3 5 AM EST 05/13/2022 10:37 AM EST us Milan Aleman MD LAB BLOOD ORDERABLES Final R esult [facility] [address] [place] [address] * CBC (05/13/2022 10:35 AM EST) WBC 7.00 4.00 - 11.00 K/uL [facility] RBC 4.33 3.72 - 5.30 M/uL [facility] HGB 14.0 11.4 - 15.9 g/dL [facility] HCT 41.2 34.2 - 46.8 % [facility] PLT 349 140 - 430 K/uL [facility] MCV 95.2 78.0 - 97.0 fL [facility] MCH 32.3 25.0 - 33.0 pg [facility] MCHC 34.0 32.0 - 36.0 g/dL [facility] RDW 12.8 11.0 - 16.0 % [facility] MPV 10.5 8.4 - 12.8 fl [facility] Blood 05/13/2022 10:3 5 AM EST 05/13/2022 10:37 AM EST us Milan Aleman MD LAB BLOOD ORDERABLES Final R esult [address] [address] documented in this encounter Visit Diagnoses Diagnosis Bloating- Primary Flatulence, eructation, and gas pain Change in bowel habits Other symptoms involving digestive system documented in this encounter Additional Health Concerns Infection Onset Date Last Indicated Resolved Time CoV-Risk 11/27/2024 11/27/2024 12/08/2024 1:21 AM EDT documented as of this encounter Care Teams Avian Keeper Relationship Specialty Start Date End Date Malena Stephens [place] [address] PCP - General 06/26/17 07/01/22 Ashok Esparza MD [address] [place] [address] [place] [address] PCP - General Internal Medicine 07/02/22 03/23/25 Pcp, Unknown PCP - General 03/24/25 Luz Locke MD [address] [place] [address] [place] [address] [email or web address] Geriatric Medicine 07/02/22 documented as of this encounter Additional Source Comments The information contained in this document represents components of the legal health record. It is not the complete legal health record.[facility]
[2025-04-07 07:03] LABS: Lyme Blot 3.21 index
[2025-04-08 14:12] LABS: 39KD (IgG) Band NON-REACTIVE; 41KD (IgG) Band REACTIVE; Lyme IgG Blot Interp NEGATIVE (NEGATIVE); Lyme IgM Blot Interp NEGATIVE (NEGATIVE)
[2025-04-08 14:30] LABS: Lyme Abs Screen POSITIVE
== END 2025-04-05 11:01 | disposition home or self-care (01) ==
LOC: HO.LAB 11:00
PROVIDERS: PCP Physician Assistant; Visit Provider Physician Assistant
DX: A69.20 Lyme disease, unspecified (principal)
CPT/HCPCS: 36415; 86617; 86618

== ENCOUNTER 2025-04-11 08:50 | Outpatient (AMB) | payer MEDICARE, OTHER, SELFPAY ==
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
[2025-04-11 09:05] VITALS: BP 120/74; PULSE 86; RESP 18; TEMP 37; O2SAT 98; BMI 26.3
--- OUTSIDE RECORDS SUMMARY | 2025-04-11 09:55 | XMS_ITS | Encounter Summary ---
Author Organization [facility] Address [address] [place] [address] Phone Care Team Providers Care Portfolio Management Marketing Name Role Phone Luz Locke MD Unavailable [phone] Pcp, Unknown Primary Care Provider Unavailabl e Encounter Details Date Type Department Care Team (Late st Contact Info) Description 03/29/2025 Telephone [facility] [address] [place] [address] Zahida Mcneil, DAMARIS [address] [address] [email or web address] Social History Tobacco Use Types Packs/Day Years [...] documented as of this encounter Care Teams Portfolio Management Marketing Relationship Specialty Start Date End Date Pcp, Unknown PCP - General 03/24/25 Luz Locke MD [email or web address] Geriatric Medicine 07/02/22 documented as of this encounter Additional Source Comments The information contained in this document represents components of the legal health record. It is not the complete legal health record.[facility]
--- OUTSIDE RECORDS SUMMARY | 2025-04-11 09:55 | XMS_ITS | Encounter Summary ---
Author Organization [facility] Address [address] [place] [address] Phone Care Team Providers Care Sql Report Developer Name Role Phone Ashok Esparza MD Primary Care Provider Luz Locke MD Unavailable Pcp, Unknown Primary Care Provider Unavailabl e Encounter Details Date Type Department Care Team (Late st Contact Info) Description 09/23/2022 Procedure Pass [facility], Ct Scan - [address] [address] Social History Tobacco Use Types Packs/Day Years [...] 7:06 AM EDT Adry Mtz RN * [place] Suicide Severity Rating Scale (Screener/Recent Self-Report) Question [...] documented as of this encounter Care Teams Sql Report Developer Relationship Specialty Start Date End Date Ashok Esparza MD [address] [place] [address] Dr [place] [place] [address] PCP - General Internal Medicine 07/02/22 03/23/25 Pcp, Unknown PCP - General 03/24/25 Luz Locke MD [address] [place] [address] [place] [address] [email or web address] Geriatric Medicine 07/02/22 documented as of this encounter Additional Source Comments The information contained in this document represents components of the legal health record. It is not the complete legal health record.[facility]
--- OUTSIDE RECORDS SUMMARY | 2025-04-11 09:55 | XMS_ITS | Clinical Summary ---
Author Organization [facility] Address [address] [place] [address] Phone Care Team Providers Care Qa Software Test Engineer Name Role Phone Luz Locke MD Unavailable [phone] Pcp, Unknown Primary Care Provider Unavailabl e Allergies Active Allergy Reactions Criticality Noted Date [...] Encounters Date Type Department Care Team Description 03/29/2025 Telephone [facility] [address] [place] [address] Zahida Mcneil, DAMARIS 03/28/2025 10:55 AM EDT - 03/28/2025 11:59 PM EDT Hospital Encounter [address] [address] Kaden Anguiano MD Discharge Disposition: Home or Self Care 03/22/2025 3:10 PM EDT - 03/22/2025 11:59 PM EDT Hospital Encounter [facility] [address] [place] [address] Zahida Mcneil NP Discharge Disposition: Home or Self Care 03/22/2025 Transcribe Orders [facility] [address] [address] Zahida Mcneil, GREGORIO Weight loss (Primary Dx); Fatigue, unspecified type 03/07/2025 Ancillary Orders [facility],Outside Imaging [address] [place] [address] Unknown, Unknown, 03/07/2025 Ancillary Orders [facility] Imaging [address] [place] [address] Unknown, Unknown, 03/07/2025 Ancillary Orders [facility]Outside Imaging [address] [place] [address] Unknown, Unknown, 09/10/2024 Procedure Pass [address] [address] from Last 3 Months Immunizations Immunization Administration Dates Next Due COVID-19 (Pre-04/14) Venus Vaccine, rS-Ad26, PF 08/26/2020 COVID-19 (Pre-04/14) Moderna Vaccine, Bivalent 6mo+ 04/25/2022 COVID-19 (Pre-04/14) Moderna Vaccine, mRNA, PF 11/05/2021,05/07/2021 Influenza High-Dose Quadriva lent Preservative Free IM 04/30/2021,04/20/2020 Influenza High-Dose Trivalen t Preservative Free IM 04/23/2019 Pneumococcal polysaccharide PPSV23 05/26/2018 Tdap 09/22/2012 Zoster recombinant 09/28/2020,06/26/2020, 020 Family History Medical History Relation Comments Ashkenazi Religion ancestry Father Both M other & Father Cancer Father Throat Esophageal cancer Father Heart attack Father Breast cancer Maternal Great-Grandmother lucrecia edge's father's mother. Cancer Mother Lung Lung cancer Mother non smoker Breast cancer Sister Relation Status Comments Father Maternal Grandmother Maternal Great-Grandmother Mother Sister Social History Tobacco Use Types Packs/Day Years Used Date Smoking Tobacco: Never Smokeless Tobacco: Never Tobacco Cessation:Counseling Given: Not Answered Alcohol Use Standard Drinks/Week Comments Yes 3 [...] 09/23/2022 7:03 AM EDT Plan of Treatment Health Maintenance Due Date Last Done Comments LIPID PANEL 1955 HEPATITIS C SCREENING 09/09/1971 COLOGUARD 1998 FIT TEST 1998 FOBT 1998 SIGMOIDOSCOPY 1998 VIRTUAL COLONOSCOPY 1998 OSTEOPOROSIS SCREENING INITIAL (ONE-TIME) 2018 Adult Td,Tdap Booster 09/22/2022 09/22/2012 DEPRESSION SCREENING 02/10/2024 02/09/2023, 02/10/20 23 INFLUENZA VACCINE (#1) 2025 , 04/21/2023, 04/25/2022, Additional history exists COVID-19 VACCINE ( season) 2025 02/24/2024, 04/21/2023, 04/25/2022, Additional history exists MAMMOGRAM 03/28/2027 03/28/2025, 08/21, 03/20/2022, Additional history exists RSV VACCINE (1 - 1-dose 75+ series) 2028 COLONOSCOPY 07/25/2032 07/25/2022 COLORECTAL CANCER SCREENING 07/25/2032 ZOSTER VACCINES Completed 09/28/2020, 09/2020, 03/23/2020 PNEUMOCOCCAL VACCINES (50+ years) Completed 06/20/2022, 05/26/2018 SMOKING STATUS SCREENING (Once After 26 Yrs) Completed 03/28/2025 HEPATITIS A VACCINES Aged Out No long [...] Procedure Name Priority Date/Time Associated Diagnosis Comments BI MAMMOGRAM SCREENING WITH TOMOSYNTHESIS WITH CAD (BILATERAL) Routine 03/28/2025 11:18 AM EDT Encounter for gynecological examination without abnormal finding TISSUE TRANSGLUTAMINASE IGA Routine 03/22/2025 3:11 PM EDT Weight loss Fatigue, unspecified type IMMUNOGLOBULIN A Routine 03/22/2025 3:11 PM EDT Weight loss Fatigue, unspecified type CBC Routine 03/22/2025 3:11 PM EDT Weight loss Fatigue, unspecified type COMPREHENSIVE METABOLIC PANEL Routine 03/22/2025 3:11 PM EDT Weight loss Fatigue, unspecified type C-REACTIVE PROTEIN Routine 03/22/2025 3: 11 PM EDT Weight loss Fatigue, unspecified type GGT (GAMMA GLUTAMYL TRANSFERASE) Routine 03/22/2025 3:11 PM EDT Weight loss Fatigue, unspecified type IRON AND IRON BINDING CAPACITY Routine 03/22/2025 3:11 PM EDT Weight loss Fatigue, unspecified type TSH Routine 03/22/2025 3:11 PM EDT Weight loss Fatigue, unspecified type FERRITIN Routine 03/22/2025 3:11 PM EDT Weight loss Fatigue, unspecified type ENDOSCOPY, COLON 07/25/2022 11:5 0 AM EST from Last 3 Months or Most Recently Relevant to Health Maintenance Results * BI MAMMOGRAM SCREENING WITH TOMOSYNTHESIS WITH CAD (BILATERAL) (03/28/2025 11:18 AM EDT) Anatomical Region Laterality Modality Breast Left, Breast Right, Breast Bilateral Bila teral Mammography 03/29/2025 9:26 AM EDT Impressions 03/29/2025 9:43 AM EDT No mammographic evidence of malignancy in either breast. Annual screening mammography is recommended. BI-RADS 1 NEGATIVE The patient will be notified of the results and recommendations. Narrative 03/29/2025 9:43 AM EDT BI MAMMOGRAM SCREENING WITH TOMOSYNTHESIS WITH CAD (BILATERAL) Additional patient information: Screening. COMPARISON: Comparison is made with relevant prior imaging. Breast composition: The breasts are heterogeneously dense, which may obscure small masses. FINDINGS: No abnormal masses, suspicious calcifications, or other significant findings are identified mammographically in either breast. Procedure Note Truman Gray MD, PhD - 03/29/2025 BI MAMMOGRAM SCREENING WITH TOMOSYNTHESIS WITH CAD (BILATERAL) Additional patient information: Screening. COMPARISON: Comparison is made with relevant prior imaging. Breast composition: The breasts are heterogeneously dense, which mayobscure small masses. FINDINGS: No abnormal masses, suspicious calcifications, or other significantfindings are identified mammographically in either breast. IMPRESSION: No mammographic evidence of malignancy in either breast. Annual screening mammography is recommended. BI-RADS 1 NEGATIVE The patient will be notified of the results and recommendations. us Kaden Anguiano MD IMG MG EXAMS Final Re sult * (ABNORMAL) Comprehensive metabolic panel (03/22/2025 3:11 PM EDT) SODIUM 140 133 - 146 mmol/L [facility] POTASSIUM 4.3 3.3 - 5.1 mmol/L [facility] CHLORIDE 102 96 - 108 mmol/L [facility] CO2 27 21 - 35 mmol/L [facility] BUN 15 6 - 19 mg/dL [facility] CREATININE 0.70 0.5 - 1.5 mg/dL [facility] GLUCOSE 95 70 - 99 mg/dL [facility] ALBUMIN 4.2 3.9 - 4.8 g/dL [facility] TOTAL PROTEIN 7.1 6.5 - 8.0 g/dL [facility] CALCIUM 10.6(H) 8.4 - 10.3 mg/dL [facility] ALKALINE PHOSPHATASE 97 39 - 117 U/L [facility] TOTAL BILIRUBIN 0.4 0.0 - 1.2 mg/dL [facility] AST 19 0 - 37 U/L [facility] ALT 11 0 - 40 U/L [facility] GLOBULIN 2.9 1 - 4.8 g/dL [facility] EGFR 92 >59 mL/min/1.7 3m2 [facility] Comment:Estimated glomerular filtration rate calculated using the CKD-EPI refit equation. ANION GAP 15 10 - 20 mmol/L [facility] Blood 03/22/2025 3:11 PM EDT 03/22/2025 3:18 PM EDT us Zahida Mcneil HIGH PRESSURE BOILER OPERATOR LAB BLOOD ORDERABLES Shelley [email or web address] Result [facility] [address] [place], [place] [id number] * Iron and iron binding capacity (03/22/2025 3:11 PM EDT) Pathologist [facility] IRON 65 30 - 160 ug/dL [facility] IRON BINDING CAPACITY 360 228 - 428 ug/dL [facility] TRANSFERRIN SATURAT. 18 15 - 50 % [facility] Blood 03/22/2025 3:11 PM EDT 03/22/2025 3:18 PM EDT Zahida Mcneil HIGH PRESSURE BOILER OPERATOR LAB BLOOD ORDERABLES Shelley l Result [address] [address] * Tissue transglutaminase IgA (03/22/2025 3:11 PM EDT) Pathologist [facility] TTG IGA ANTIBODY 1.3 <4.0 (Negative) U/mL [facility] Blood 03/22/2025 3:11 PM EDT 03/22/2025 3:17 PM EDT Zahida Mcneil NP LAB BLOOD ORDERABLES Shelley l Result Performing Organization Address [facility] Co de Phone Number [facility] [place] [address] * GGT (Gamma glutamyl transferase) (03/22/2025 3:11 PM EDT) Pathologist [facility] GGT 19 7 - 33 U/L [facility] Blood 03/22/2025 3:11 PM EDT 03/22/2025 3:18 PM EDT Zahida Mcneil NP LAB BLOOD ORDERABLES Shelley l Result Performing Organization Address [facility]/ZIP Co de Phone Number [address] [address] * (ABNORMAL) CBC (03/22/2025 3:11 PM EDT) Pathologist [facility] WBC 6.70 4.00 - 11.00 K/uL [facility] RBC 4.42 4.00 - 5.20 M/uL [facility] HGB 14.1 12.0 - 16.0 g/dL [facility] HCT 42.0 36.0 - 46.0 % [facility] PLT 331 150 - 450 K/uL [facility] MCV 95.0 80.0 - 100.0 fL [facility] MCH 31.9(H) 27.0 - 31.0 pg [facility] MCHC 33.6 32.0 - 36.0 g/dL [facility] RDW 12.9 11.5 - 14.5 % [facility] MPV 9.8 8.4 - 12.0 fL [facility] NRBC 0.00 0.00 /100 WBCs [facility] ABSOLUTE NRBC 0.00 0.00 K/uL [facility] Blood 03/22/2025 3:11 PM EDT 03/22/2025 3:18 PM EDT Zahida Mcneil HIGH PRESSURE BOILER OPERATOR LAB BLOOD ORDERABLES Shelley l Result [address] [address] * C-Reactive Protein (03/22/2025 3:11 PM EDT) C REACTIVE PROTEIN <3.0 0.0 - 4.0 mg/L [facility] Blood 03/22/2025 3:11 PM EDT 03/22/2025 3:18 PM EDT Zahida Mcneil HIGH PRESSURE BOILER OPERATOR LAB BLOOD ORDERABLES Shelley l Result [address] [address] * TSH (03/22/2025 3:11 PM EDT) TSH 2.27 0.27 - 4.20 uIU/mL [facility] Blood 03/22/2025 3:11 PM EDT 03/22/2025 3:18 PM EDT Zahida Mcneil HIGH PRESSURE BOILER OPERATOR LAB BLOOD ORDERABLES Shelley l Result Performing Organization Address City/[facility]/ZIP Co de Phone Number [address] [address] * Immunoglobulin A (03/22/2025 3:11 PM EDT) IgA 214 70 - 400 mg/dL [facility] Blood 03/22/2025 3:11 PM EDT 03/22/2025 3:18 PM EDT Zahida Mcneil HIGH PRESSURE BOILER OPERATOR LAB BLOOD ORDERABLES Shelley l Result Performing Organization Address [facility] Co de Phone Number [address] [address] * Ferritin (03/22/2025 3:11 PM EDT) FERRITIN 129 13 - 150 ug/L [facility] Blood 03/22/2025 3:11 PM EDT 03/22/2025 3:18 PM EDT Zahida Mcneil HIGH PRESSURE BOILER OPERATOR LAB BLOOD ORDERABLES Shelley l Result Performing Organization Address [facility] Co de Phone Number [address] [address] * ENDOSCOPY, COLON (07/25/2022 11:50 AM EST) Narrative Transcriptions Milan Giraldo MD - 07/25/2022 11:50 AM EST [facility] Patient Name: Brooklynn Rea Attending MD:: MILAN GIRALDO MD Procedure Date: 07/25/2022 11:50 AM Date of : 1955 Age: 66 Admit Type: Outpatient Gender: Female Room: [place] [address] Referring MD: AMISHA ESPARZA Exam Type: Colonoscopy [...] monitored continuously. The Olympus adult variable colonoscope [id number] #[id number] was introduced through the anus and [...] medications. - Repeat colonoscopy in 10 years forsurveillance. - Your colonoscopy was normal with no polyps or colitis. MILAN GIRALDO MD 07/25/2022 12:13:06 PM This report has been signed electronically. Number of Addenda: 0 Note Initiated On: 07/25/2022 11:50 AM Procedure Code(s): --- Professional --- 28605, Colonoscopy, flexible; diagnostic, including collection of specimen(s) by brushing or washing, when performed (separateprocedure) --- Technical --- 84217, Colonoscopy, flexible; diagnostic, including collection of specimen(s) by brushing or washing, when performed (separateprocedure) Diagnosis Code(s): --- Professional --- R19.4, Change in bowel habit --- Technical --- R19.4, Change in bowel habit CPT copyright 2020 [employer]. All rights reserved. The codes documented in this report are preliminary and upon sap sd analyst reviewmay be revised to meet current compliance requirements. Procedure Date: 07/25/2022 11:50:[address] [place] [address] Amisha Esparza MD GI PROCEDURE ORDERABLES Fin al Result from Last 3 Months or Most Recently Relevant to Health Maintenance Insurance MEDICARE PART A & B [facility] MEDICARE SUPPLEMENT MEDICARE PART A & B MEDICARE SUPPLEMENT MEDICARE PART A & B [facility] MEDICARE SUPPLEMENT MEDICARE PART A & B [facility] MEDICARE SUPPLEMENT MEDICARE PART A & B Member Subscriber Plan / Payer ( fective 2018-Present) Name:Brooklynn Rea Member ID:[id number] Relation to Subscriber:Self Name:Brooklynn Rea Subscriber ID:[id number] Payer ID:[id number] Group ID:Not on file Type:Medicare Address: [employer] [address] MEDICARE SUPPLEMENT MEDICARE PART A & B MEDICARE SUPPLEMENT MEDICARE PART A & B MEDICARE SUPPLEMENT MEDICARE PART A & B MEDICARE SUPPLEMENT MEDICARE PART A & B [facility] [place] MEDICARE SUPPLEMENT Advance Directives For more information, please contact: [phone] (9AM - 5PM [facility], Friday-Friday) Documents on File Type Date Recorded Patient Blacking Wheel Tender Expl anation Healthcare Proxy 07/05/2022 4:36 PM Care Teams Qa Software Test Engineer Relationship Specialty Start Date End Date Pcp, Unknown PCP - General 03/24/25 Luz Locke MD [email or web address] Geriatric Medicine 07/02/22 Additional Source Comments The information contained in this document represents components of the legal health record. It is not the complete legal health record.[facility]
--- OUTSIDE RECORDS SUMMARY | 2025-04-11 09:55 | XMS_ITS | Encounter Summary ---
Author Organization [facility] Address [address] [place] [address] Phone Care Team Providers Care Chipping Machine Operator Name Role Phone Ashok Esparza MD Primary Care Provider [phone] Luz Locke MD Unavailable [phone] Pcp, Unknown Primary Care Provider Unavailabl e Encounter Details Date Type Department Care Team (Late st Contact Info) Description 09/10/2024 Procedure Pass [facility], [address] [address] Social History Tobacco Use Types Packs/Day Years Used Date Smoking Tobacco: Never Smokeless Tobacco: Never Alcohol Use Standard Drinks/Week Comments Yes 3 (1 standard drink = 0.6 oz pur e alcohol) Education Answer Date Recorded Are you interested in more education? Not on maxx e 10/17/2022 Are you concerned about learning? Not on file 10/17/2022 No 10/17/2022 No 10/17/2022 Digital Access Answer Date Recorded No 11/18/2022 No 11/18/2022 Reliable internet access at home? Not on file 11/18/2022 Device with a working camera? Not on file Intimate Partner Violence Answer Date R ecorded [...] documented as of this encounter Care Teams Chipping Machine Operator Relationship Specialty Start Date End Date Ashok Esparza MD [address] [place] [address] [place] [address] PCP - General Internal Medicine 07/02/22 03/23/25 Pcp, Unknown PCP - General 03/24/25 Luz Locke MD [address] [place] [address] [place] [address] [email or web address] Geriatric Medicine 07/02/22 documented as of this encounter Additional Source Comments The information contained in this document represents components of the legal health record. It is not the complete legal health record.[facility]
--- OUTSIDE RECORDS SUMMARY | 2025-04-11 09:56 | XMS_ITS | Encounter Summary ---
Author Organization [facility] Address [address] [facility] [address] [place] [address] Phone Care Team Providers Care Colorist Formulator Name Role Phone Malena Stephens MD Primary Care Provider Ashok Esparza MD Primary Care Provider [phone] Luz Locke MD Unavailable [phone] Pcp, Unknown Primary Care Provider Unavailabl e Reason for Referral * Physical Therapy - Closed Specialty Diagnoses / Procedures Referred By Rose Mary terrell Referred To Contact Physical Therapy Diagnoses Encounter for rehabilitation Malena Stephens MD Phone: tel: fax: [address] [address] Phone: tel: Referral ID Status Reason Start Date Expiration Date Visits Re quested Visits Authorized [id number] Closed 09/09/2017 11/18/2017 25 25 Encounter Details Date Type Department Care Team (Latest Contact Info) Description 08/20/2017 Transcribe Orders [facility] [address] [place] [address] [phone] Malena Stephens MD [address] [place] [address] [phone] Encounter for rehabilitation (Primary Dx) Social History [...] Diagnoses Orde r Schedule Ambulatory referral to [facility] Physical Therapy Outpatient Referral Routine Encounter for rehabilitation Ordered: 08/20/2017 documented as of this encounter Visit Diagnoses Diagnosis Encounter for rehabilitation- Primary documented in this encounter Additional Health Concerns Infection Onset Date Last Indicated Resolved Time CoV-Risk 11/27/2024 11/27/2024 12/08/2024 1:21 AM EDT documented as of this encounter Care Teams Colorist Formulator Relationship Specialty Start Date End Date Malena Stephens MD [address] [place] [id number] PCP - General 06/26/17 07/01/22 Ashok Esparza MD [address] [place] [address] Dr [place]ERRERA [facility] [place] [id number] PCP - General Internal Medicine 07/02/22 03/23/25 Pcp, Unknown PCP - General 03/24/25 Luz Locke MD [address] [place] [address] [place] [id number] [email or web address] Geriatric Medicine 07/02/22 documented as of this encounter Additional Source Comments The information contained in this document represents components of the legal health record. It is not the complete legal health record.[facility]
--- OUTSIDE RECORDS SUMMARY | 2025-04-11 09:56 | XMS_ITS | Encounter Summary ---
Author Organization [facility] Address [address] [place] [address] Phone Care Team Providers Care E Commerce Architect Name Role Phone Malena Stephens MD Primary Care Provider Ashok Esparza MD Primary Care Provider Luz Locke MD Unavailable [phone] Pcp, Unknown Primary Care Provider Unavailabl e Encounter Details Date Type Department Care Team (Latest Contact Info) Description 05/13/2022 Transcribe Orders [facility] [address] [place] [address] Milan Aleman MD [address] [address] Bloating (Primary Dx); Change in bowel habits [...] EST) IgA 195 61 - 356 mg/dL [facility] Celiac Disease Panel/Interpret ation SEE NOTE [facility] Comment: (NOTE) See [...] R esult Performing Organization Address [facility] Co de Phone Number [facility] [address] [place] [address] * Lipase (05/13/2022 10:35 AM EST) LIPASE 39 16 - 63 U/L [facility] Blood 05/13/2022 10:3 5 AM EST 05/13/2022 10:37 AM EST Milan Aleman MD LAB BLOOD ORDERABLES Final R esult Performing Organization Address [facility] Co de Phone Number [address] [address] * (ABNORMAL) C-Reactive Protein (05/13/2022 10:35 AM EST) C REACTIVE PROTEIN 4.9(H) 0.0 - 4.0 mg/L [facility] Blood 05/13/2022 10:3 5 AM EST 05/13/2022 10:37 AM EST Milan Aleman MD LAB BLOOD ORDERABLES Final R esult Performing Organization Address [facility] Co de Phone Number [address] [address] * Comprehensive metabolic panel (05/13/2022 10:35 AM EST) SODIUM 142 133 - 146 mmol/L [facility] POTASSIUM 4.0 3.3 - 5.1 mmol/L [facility] CHLORIDE 104 96 - 108 mmol/L [facility] CO2 28 21 - 35 mmol/L [facility] BUN 14 6 - 19 mg/dL [facility] CREATININE 0.70 0.5 - 1.5 mg/dL [facility] GLUCOSE 83 70 - 99 mg/dL [facility] ALBUMIN 4.4 3.9 - 4.8 g/dL [facility] TOTAL PROTEIN 6.7 6.5 - 8.0 g/dL [facility] CALCIUM 9.8 8.4 - 10.3 mg/dL [facility] ALKALINE PHOSPHATASE 100 39 - 117 U/L [facility] TOTAL BILIRUBIN 0.5 0.0 - 1.2 mg/dL [facility] AST 25 0 - 37 U/L [facility] ALT 11 0 - 40 U/L [facility] GLOBULIN 2.3 1 - 4.8 g/dL [facility] EGFR 94 >59 mL/min/1.7 3m2 [facility] Comment:Estimated glomerular filtration rate calculated using the CKD-EPI refit equation. ANION GAP 14 10 - 20 mmol/L [facility] Blood 05/13/2022 10:3 5 AM EST 05/13/2022 10:37 AM EST us Milan Aleman MD LAB BLOOD ORDERABLES Final R esult [facility] [address] [place] [address] * CBC (05/13/2022 10:35 AM EST) WBC 7.00 4.00 - 11.00 K/uL [facility] RBC 4.33 3.72 - 5.30 M/uL [facility] HGB 14.0 11.4 - 15.9 g/dL [facility] HCT 41.2 34.2 - 46.8 % [facility] PLT 349 140 - 430 K/uL [facility] MCV 95.2 78.0 - 97.0 fL [facility] MCH 32.3 25.0 - 33.0 pg [facility] MCHC 34.0 32.0 - 36.0 g/dL [facility] RDW 12.8 11.0 - 16.0 % [facility] MPV 10.5 8.4 - 12.8 fl [facility] Blood 05/13/2022 10:3 5 AM EST 05/13/2022 10:37 AM EST us Milan Aleman MD LAB BLOOD ORDERABLES Final R esult [address] [address] documented in this encounter Visit Diagnoses Diagnosis Bloating- Primary Flatulence, eructation, and gas pain Change in bowel habits Other symptoms involving digestive system documented in this encounter Additional Health Concerns Infection Onset Date Last Indicated Resolved Time CoV-Risk 11/27/2024 11/27/2024 12/08/2024 1:21 AM EDT documented as of this encounter Care Teams E Commerce Architect Relationship Specialty Start Date End Date [facility] Stephens [facility] [place] [address] PCP - General 06/26/17 07/01/22 Ashok Esparza MD [address] [place] [address] [place] [address] PCP - General Internal Medicine 07/02/22 03/23/25 Pcp, Unknown PCP - General 03/24/25 Luz Locke MD [address] [place] [address] [place] [address] [email or web address] Geriatric Medicine 07/02/22 documented as of this encounter Additional Source Comments The information contained in this document represents components of the legal health record. It is not the complete legal health record.[facility]
--- OUTSIDE RECORDS SUMMARY | 2025-04-11 09:56 | XMS_ITS | Encounter Summary ---
Author Organization [facility] Address [address] [facility] [address] [place] [address] Phone Care Team Providers Care Global Implementation Manager Name Role Phone Ashok Esparza MD Primary Care Provider Luz Locke MD Unavailable [phone] Pcp, Unknown Primary Care Provider Unavailabl e Encounter Details Date Type Department Care Team (Latest Contact Info) Description 07/17/2022 Transcribe Orders [facility] Specimen Processing [address] [place] [address] Joseph Esparza MD [address] [facility], 2nd [place] [address] Bloating (Primary Dx) Social History Tobacco Use [...] documented as of this encounter Care Teams Global Implementation Manager Relationship Specialty Start Date End Date Ashok Esparza MD [address] [place] [address] [place] [address] PCP - General Internal Medicine 07/02/22 03/23/25 Pcp, Unknown PCP - General 03/24/25 Luz Locke MD [address] [place] [address] [place] [address] [email or web address] Geriatric Medicine 07/02/22 documented as of this encounter Additional Source Comments The information contained in this document represents components of the legal health record. It is not the complete legal health record.[facility]
--- OUTSIDE RECORDS SUMMARY | 2025-04-11 09:56 | XMS_ITS | Encounter Summary ---
Author Organization [facility] Address [address] [place] [address] Phone Care Team Providers Care Type Proof Reproducer Name Role Phone Ashok Esparza MD Primary Care Provider Luz Locke MD Unavailable [phone] Pcp, Unknown Primary Care Provider Unavailabl e Encounter Details Date Type Department Care Team (Late st Contact Info) Description 07/25/2022 Procedure Pass [facility] Endoscopy Admitting Dept Virtual Department [address] [place] [address] Social History Tobacco Use Types Packs/Day Years [...] documented as of this encounter Care Teams Type Proof Reproducer Relationship Specialty Start Date End Date Ashok Esparza MD [address] [place] [address] [place] [address] PCP - General Internal Medicine 07/02/22 03/23/25 Pcp, Unknown PCP - General 03/24/25 Luz Locke MD [address] [place] [address] [place] [address] [email or web address] Geriatric Medicine 07/02/22 documented as of this encounter Additional Source Comments The information contained in this document represents components of the legal health record. It is not the complete legal health record.[facility]
--- OUTSIDE RECORDS SUMMARY | 2025-04-11 09:57 | XMS_ITS | Encounter Summary ---
Author Organization [facility] Address [address] [facility] [address] [place] [address] Phone Care Team Providers Care Clinical Outcomes Manager Name Role Phone Ashok Esparza MD Primary Care Provider [phone] Luz Locke MD Unavailable [phone] Pcp, Unknown Primary Care Provider Unavailabl e Encounter Details Date Type Department Care Team (Latest Contact Info) Description 03/22/2025 Transcribe Orders [facility] [address] [address] Zahida Mcneil, GREGORIO [address] [place] [address] Weight loss (Primary Dx); Fatigue, unspecified type [...] EDT) FERRITIN 129 13 - 150 ug/L [facility] Blood 03/22/2025 3:11 PM EDT 03/22/2025 3:18 PM EDT Zahida Mcneil [employer] LAB BLOOD ORDERABLES Shelley l Result Performing Organization Address City/[facility]/ZIP Co de Phone Number [address] [address] * TSH (03/22/2025 3:11 PM EDT) TSH 2.27 0.27 - 4.20 uIU/mL [facility] Blood 03/22/2025 3:11 PM EDT 03/22/2025 3:18 PM EDT Zahida Mcneil [employer] LAB BLOOD ORDERABLES Shelley l Result Performing Organization Address [facility] Co de Phone Number [address] [address] * Iron and iron binding capacity (03/22/2025 3:11 PM EDT) IRON 65 30 - 160 ug/dL [facility] IRON BINDING CAPACITY 360 228 - 428 ug/dL [facility] TRANSFERRIN SATURAT. 18 15 - 50 % [facility] Blood 03/22/2025 3:11 PM EDT 03/22/2025 3:18 PM EDT Zahida Mcneil NP LAB BLOOD ORDERABLES Shelley l Result Performing Organization Address [facility]/ZIP Co de Phone Number [address] [address] * GGT (Gamma glutamyl transferase) (03/22/2025 3:11 PM EDT) GGT 19 7 - 33 U/L [facility] Blood 03/22/2025 3:11 PM EDT 03/22/2025 3:18 PM EDT Zahida Mcneil [employer] LAB BLOOD ORDERABLES Shelley l Result [address] [address] * C-Reactive Protein (03/22/2025 3:11 PM EDT) C REACTIVE PROTEIN <3.0 0.0 - 4.0 mg/L [facility] Blood 03/22/2025 3:11 PM EDT 03/22/2025 3:18 PM EDT Zahida Mcneil [employer] LAB BLOOD ORDERABLES Shelley l Result [address] [address] * (ABNORMAL) Comprehensive metabolic panel (03/22/2025 3:11 PM EDT) SODIUM 140 133 - 146 mmol/L [facility] POTASSIUM 4.3 3.3 - 5.1 mmol/L [facility] CHLORIDE 102 96 - 108 mmol/L [facility] CO2 27 21 - 35 mmol/L [facility] BUN 15 6 - 19 mg/dL [facility] CREATININE 0.70 0.5 - 1.5 mg/dL [facility] GLUCOSE 95 70 - 99 mg/dL [facility] ALBUMIN 4.2 3.9 - 4.8 g/dL [facility] TOTAL PROTEIN 7.1 6.5 - 8.0 g/dL [facility] CALCIUM 10.6(H) 8.4 - 10.3 mg/dL [facility] ALKALINE PHOSPHATASE 97 39 - 117 U/L [facility] TOTAL BILIRUBIN 0.4 0.0 - 1.2 mg/dL [facility] AST 19 0 - 37 U/L [facility] ALT 11 0 - 40 U/L [facility] GLOBULIN 2.9 1 - 4.8 g/dL [facility] EGFR 92 >59 mL/min/1.7 3m2 [facility] Comment:Estimated glomerular filtration rate calculated using the CKD-EPI refit equation. ANION GAP 15 10 - 20 mmol/L [facility] Blood 03/22/2025 3:11 PM EDT 03/22/2025 3:18 PM EDT Zahida Mcneil NP LAB BLOOD ORDERABLES Shelley l Result [address] [address] * (ABNORMAL) CBC (03/22/2025 3:11 PM EDT) WBC 6.70 4.00 - 11.00 K/uL [facility] RBC 4.42 4.00 - 5.20 M/uL [facility] HGB 14.1 12.0 - 16.0 g/dL [facility] HCT 42.0 36.0 - 46.0 % [facility] PLT 331 150 - 450 K/uL [facility] MCV 95.0 80.0 - 100.0 fL [facility] MCH 31.9(H) 27.0 - 31.0 pg [facility] MCHC 33.6 32.0 - 36.0 g/dL [facility] RDW 12.9 11.5 - 14.5 % [facility] MPV 9.8 8.4 - 12.0 fL [facility] NRBC 0.00 0.00 /100 WBCs [facility] ABSOLUTE NRBC 0.00 0.00 K/uL [facility] Blood 03/22/2025 3:11 PM EDT 03/22/2025 3:18 PM EDT Zahida Mcneil NP LAB BLOOD ORDERABLES Shelley l Result [address] [address] * Immunoglobulin A (03/22/2025 3:11 PM EDT) IgA 214 70 - 400 mg/dL [facility] Blood 03/22/2025 3:11 PM EDT 03/22/2025 3:18 PM EDT us Zahida Nicolezeina [employer] LAB BLOOD ORDERABLES Shelley l Result [address] [address] * Tissue transglutaminase IgA (03/22/2025 3:11 PM EDT) TTG IGA ANTIBODY 1.3 <4.0 (Negative) U/mL [facility] Blood 03/22/2025 3:11 PM EDT 03/22/2025 3:17 PM EDT Zahida Aguileramargi [employer] LAB BLOOD ORDERABLES Shelley l Result [facility] [address] [place] [address] documented in this encounter Visit Diagnoses Diagnosis Weight loss- Primary Loss of weight Fatigue, unspecified type documented in this encounter Additional Health Concerns Assessment Noted Time PHQ-9 Depression Total Score: 3 02/10/20 5:12 PM EDT PHQ-2 Depression Total Score: 2 02/10/20 5:12 PM EDT documented as of this encounter Care Teams Clinical Outcomes Manager Relationship Specialty Start Date End Date Ashok Esparza MD [address] [place] [address] [place] [address] PCP - General Internal Medicine 07/02/22 03/23/25 Pcp, Unknown PCP - General 03/24/25 Luz Locke MD [address] [place] [address] [place] [address] [email or web address] Geriatric Medicine 07/02/22 documented as of this encounter Additional Source Comments The information contained in this document represents components of the legal health record. It is not the complete legal health record.[facility]
== END 2025-04-11 09:39 | disposition home or self-care (01) ==
LOC: HO.HMCHD 08:51
PROVIDERS: PCP Physician Assistant; Visit Provider Physician Assistant
DX: R41.3 Other amnesia (principal); A69.20 Lyme disease, unspecified

== ENCOUNTER → 2025-04-11 08:50 | Outpatient (BNVA) | payer MEDICARE, OTHER, SELFPAY | PROVIDERS: PCP Physician Assistant; Visit Provider Physician Assistant | DX: Z76.89 Persons encountering health services in other specified circumstances (principal); R41.3 Other amnesia; A69.20 Lyme disease, unspecified; Z87.820 Personal history of traumatic brain injury | CPT/HCPCS: 99212 ==